=== PATIENT | male | born 1935 | race Caucasian/White ===

== ENCOUNTER 2017-01-17 20:11 | Emergency (ER) | payer OTHER ==
[~2017-01-17] VITALS: Ht 175.3 cm; Wt 93.0 kg
[~2017-01-17 20:11] MED LIST: ALPRAZOLAM 0.50.5 M1 PO; ASPIR 8181 MG PO; ASPIRIN325 PO; ASPIRIN81 M2 PO; ATENOLOL 100MG100 M2 PO; AVODART0.5 MG; AVODART0.5 MG PO; BISACODYL SUPP10 MG RECTAL; CARDIZEM CD 30300 M1 PO; CENTRUM SILVER1 EAC2 PO; CHONDROITIN SU250 MG PO; COLACE100 MG PO; FERREX 150 PLU1 EAC1 PO; FLOMAX0.4 MG PO; GLUCOPHAGE XR500 M1 PO; GLUCOPHAGE500 MG PO; GLUCOSAMINE &1 EAC1 PO; GLUCOSAMINE HC500 MG PO; HYDROCODONE-APA1 TA1 PO; LISINOPRIL40 MG PO; LOMOTIL TABLET1 EACH PO; MAXZIDE-25 MG1 EACH PO; MELOXICAM7.5 MG PO; METFORMIN HCL500 MG PO; METOCLOPRAMIDE10 MG PO; MOBIC15 MG PO; MSM1000 M1 PO; NORCO 5-325 TA1 EACH PO; NORVASC10 MG PO; PAXIL10 MG PO; PRILOSEC20 MG PO; PRILOSEC40 MG PO; SENNA PO; SENOKOT-S1 TA1 PO; SIMVASTATIN20 MG PO; TAZTIA XT360 M1 PO; TIAZAC; TRAMADOL 50 MG50 MG PO; TRIAMTERENE-HC1 EAC1; TRIAMTERENE-HC1 EAC3 PO; TRIAMTERENE/HCT1 CA1 PO; TYLENOL325 MG PO; VITAMIN D1000 UNI1 PO; XANAX1 MG PO; XARELTO10 MG PO; ZOFRAN4 MG PO
== END 2017-01-17 22:36 | disposition home or self-care (01) ==
LOC: ER 20:11
DX: S61.411A Laceration without foreign body of right hand, initial encounter (principal); I10 Essential (primary) hypertension; E11.9 Type 2 diabetes mellitus without complications; K21.9 Gastro-esophageal reflux disease without esophagitis; G47.30 Sleep apnea, unspecified; F41.9 Anxiety disorder, unspecified; Z90.89 Acquired absence of other organs; Z98.890 Other specified postprocedural states; Z90.49 Acquired absence of other specified parts of digestive tract; Z96.653 Presence of artificial knee joint, bilateral; Z85.828 Personal history of other malignant neoplasm of skin; Z91.041 Radiographic dye allergy status; Z88.5 Allergy status to narcotic agent; Z88.0 Allergy status to penicillin; V89.2XXA Person injured in unspecified motor-vehicle accident, traffic, initial encounter; Y93.I9 Activity, other involving external motion; Y92.89 Other specified places as the place of occurrence of the external cause; Y99.8 Other external cause status

== ENCOUNTER 2017-01-21 15:41 | Emergency (ER) | payer OTHER ==
[~2017-01-21] VITALS: Ht 172.7 cm; Wt 104.3 kg
[2017-01-21] MEDS ORDERED: NORCO 5-325 TA1 EACH PO (17:21)
[2017-01-21] MEDS ORDERED: LIDODERM 5%1 PATC1 TRANSDERM (17:23)
[2017-01-21] MEDS ORDERED: KEFLEX500 MG PO (17:55)
== END 2017-01-21 18:05 | disposition left against medical advice (07) ==
LOC: ER 15:41
DX: S22.41XA Multiple fractures of ribs, right side, initial encounter for closed fracture (principal); S80.01XA Contusion of right knee, initial encounter; L03.115 Cellulitis of right lower limb; I10 Essential (primary) hypertension; E11.9 Type 2 diabetes mellitus without complications; K21.9 Gastro-esophageal reflux disease without esophagitis; G47.30 Sleep apnea, unspecified; F41.9 Anxiety disorder, unspecified; Z53.21 Procedure and treatment not carried out due to patient leaving prior to being seen by health care provider; Z90.89 Acquired absence of other organs; Z98.890 Other specified postprocedural states; Z90.49 Acquired absence of other specified parts of digestive tract; Z96.653 Presence of artificial knee joint, bilateral; Z85.828 Personal history of other malignant neoplasm of skin; Z91.041 Radiographic dye allergy status; Z88.5 Allergy status to narcotic agent; Z88.0 Allergy status to penicillin; V89.2XXA Person injured in unspecified motor-vehicle accident, traffic, initial encounter; Y93.I9 Activity, other involving external motion; Y92.89 Other specified places as the place of occurrence of the external cause; Y99.8 Other external cause status

== ENCOUNTER 2017-01-31 15:04 | Emergency (ER) | payer OTHER ==
[~2017-01-31] VITALS: Ht 175.3 cm; Wt 104.3 kg
--- NOTE | ~2017-01-31 | EKG ---
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 luis : 1935 Requested By: Kalpana Ken Order Number: [id number] MD: Eleno Merida Measurements Intervals [place] Rate: 53 P: 105 DC: 316 QRS: -3 QRSD: 142 T: 0 QT: 473 QTc: 445 Interpretive Statements Sinus rhythm Right bundle branch block Left ventricular hypertrophy Baseline wander in lead(s) V1 Compared to ECG 11/03/2015 10:35:33 Atrial premature complexes no longer present Electronically Signed On 02-01-2017 15:57:42 CDT by Eleno Merida [email or web address] <ELECTRONICALLY SIGNED> By: Eleno Merida MD, [facility] 02/01/17 1557 1626 1626 Eleno Merida MD, [facility] /EPI
[~2017-01-31 15:04] MED LIST changes: +KEFLEX500 MG PO; +LIDODERM 5%1 PATC1 TRANSDERM
[2017-01-31 16:51] LABS: ABSOLUTE NEUTROPHILS 3.4 thou/uL (1.4-8.2); BASOPHILS 0.7 % (0.0-2.0); EOSINOPHILS 4.4 % (0.0-3.0); HEMATOCRIT 32.8 % (42.0-52.0); HEMOGLOBIN 10.6 gm/dL (14.0-18.0); LYMPHOCYTES 22.4 % (24.0-44.0); MCH 25.1 pg (26.0-34.0); MCHC 32.3 g/dL (28.0-37.0); MCV 77.6 fL (80.0-100.0); MONOCYTES 7.4 % (1.0-8.0); PLATELET COUNT 166 thou/uL (150-400); POLYS 65.1 % (36.0-66.0); RBC 4.23 mil/uL (4.50-6.00); RDW 16.3 % (10.5-14.5); WBC 5.2 thou/uL (4.0-11.0)
[2017-01-31 17:00] LABS: ANION GAP 10 mmol/L (7-16); BUN 20 mg/dL (7-18); CALCIUM 8.6 mg/dL (8.5-10.1); CHLORIDE 104 mmol/L (98-107); CO2 27 mmol/L (21-32); CREATININE 0.7 mg/dL (0.7-1.3); GLUCOSE 89 mg/dL (74-106); POTASSIUM 3.7 mmol/L (3.5-5.1); SODIUM 141 mmol/L (136-145)
[2017-01-31 17:10] LABS: MANUAL DIFF NO
[2017-01-31 17:13] LABS: NT-PRO BRAIN NAT PEPTIDE 669 pg/mL (<300); TROPONIN-I < 0.04 ng/mL (<0.04-0.07)
== END 2017-01-31 19:34 | disposition home or self-care (01) ==
LOC: ER 15:04
PROVIDERS: Emergency Medicine
DX: S22.41XA Multiple fractures of ribs, right side, initial encounter for closed fracture (principal); S22.22XA Fracture of body of sternum, initial encounter for closed fracture; I10 Essential (primary) hypertension; E11.9 Type 2 diabetes mellitus without complications; F41.9 Anxiety disorder, unspecified; K21.9 Gastro-esophageal reflux disease without esophagitis; Z98.42 Cataract extraction status, left eye; Z98.41 Cataract extraction status, right eye; Z96.653 Presence of artificial knee joint, bilateral; Z88.5 Allergy status to narcotic agent; Z88.0 Allergy status to penicillin; Z88.8 Allergy status to other drugs, medicaments and biological substances; Z91.041 Radiographic dye allergy status

== ENCOUNTER 2017-12-02 17:14 | Emergency (ER) | payer OTHER ==
[~2017-12-02] VITALS: Ht 175.3 cm; Wt 104.3 kg
--- NOTE | ~2017-12-02 | EKG ---
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: THERON : 1935 Requested By: Bobo Jha Order Number: [id number] MD: Eleno Merida Measurements Intervals [place] Rate: 74 P: 15 WV: 185 QRS: -25 QRSD: 143 T: 2 QT: 420 QTc: 466 Interpretive Statements Sinus rhythm Right bundle branch block Left ventricular hypertrophy Compared to ECG 01/31/2017 16:26:34 No significant changes Electronically Signed On 12-03-2017 8:31:46 CDT by Eleno Merida [email or web address] <ELECTRONICALLY SIGNED> By: Eleno Merida MD, [facility] 12/03/17 0831 1721 20 Eleno Merida MD, [facility] /EPI
[2017-12-02 17:45] LABS: HEMATOCRIT 31.1 % (42.0-52.0); HEMOGLOBIN 9.5 gm/dL (14.0-18.0); MCH 19.8 pg (26.0-34.0); MCHC 30.5 g/dL (28.0-37.0); MCV 64.9 fL (80.0-100.0); PLATELET COUNT 159 thou/uL (150-400); RBC 4.79 mil/uL (4.50-6.00); WBC 7.1 thou/uL (4.0-11.0)
[2017-12-02 17:53] LABS: CALCIUM 9.5 mg/dL (8.5-10.1); CREATININE 1.1 mg/dL (0.7-1.3)
[2017-12-02 18:28] LABS: ABSOLUTE NEUTROPHILS 5.3 thou/uL (1.4-8.2); HYPOCHROMASIA 1+; MICROCYTES 2+
[2017-12-02 18:29] LABS: ANISOCYTOSIS 1+; OVALOCYTES FEW; POIKILOCYTOSIS 1+
== END 2017-12-02 18:45 | disposition home or self-care (01) ==
LOC: ER 17:14
PROVIDERS: Emergency Medicine
DX: R55 Syncope and collapse (principal); K59.00 Constipation, unspecified; I10 Essential (primary) hypertension; E11.9 Type 2 diabetes mellitus without complications; K21.9 Gastro-esophageal reflux disease without esophagitis; Z85.828 Personal history of other malignant neoplasm of skin; Z88.0 Allergy status to penicillin; Z88.5 Allergy status to narcotic agent; Z88.8 Allergy status to other drugs, medicaments and biological substances

== ENCOUNTER 2018-12-17 00:38 | Emergency (ER) | payer OTHER ==
[~2018-12-17] VITALS: Ht 172.7 cm; Wt 99.8 kg
[2018-12-17 01:56] LABS: HEMATOCRIT 28.3 % (42.0-52.0); HEMOGLOBIN 9.1 gm/dL (14.0-18.0); MCH 25.2 pg (26.0-34.0); MCHC 32.1 g/dL (28.0-37.0); MCV 78.7 fL (80.0-100.0); RBC 3.59 mil/uL (4.50-6.00); RDW 16.3 % (10.5-14.5); WBC 4.8 thou/uL (4.0-11.0)
[2018-12-17 02:04] LABS: ANION GAP 9 mmol/L (7-16); BUN 26 mg/dL (7-18); CALCIUM 8.7 mg/dL (8.5-10.1); CHLORIDE 101 mmol/L (98-107); CO2 27 mmol/L (21-32); CREATININE 0.9 mg/dL (0.7-1.3); GLUCOSE 90 mg/dL (74-106); POTASSIUM 3.5 mmol/L (3.5-5.1); SODIUM 137 mmol/L (136-145)
[2018-12-17 02:08] LABS: TROPONIN-I <0.06 ng/mL (<0.06)
[2018-12-17 03:35] VITALS: BP 114/68
--- NOTE | 2018-12-17 08:21 | EKG ---
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 Right bundle branch block Left ventricular hypertrophy Lateral infarct, age indeterminate Compared to ECG 12/02/2017 17:21:06 Electronically Signed On 12-17-2018 8:21:47 CDT by Suleiman Villagran [email or web address] ��������������������������������������������� <ELECTRONICALLY SIGNED> ���������������������������������������� By: Suleiman Villagran MD ��������������������������������������������� 12/17/18 08 005 Suleiman Villagran MD /ARY
== END 2018-12-17 03:35 | disposition home or self-care (01) ==
LOC: ER 00:38
PROVIDERS: Emergency Medicine
DX: M25.512 Pain in left shoulder (principal); M54.2 Cervicalgia; I10 Essential (primary) hypertension; E11.9 Type 2 diabetes mellitus without complications; K21.9 Gastro-esophageal reflux disease without esophagitis; F41.9 Anxiety disorder, unspecified; G47.30 Sleep apnea, unspecified; Z95.5 Presence of coronary angioplasty implant and graft; Z88.5 Allergy status to narcotic agent; Z91.041 Radiographic dye allergy status; Z90.49 Acquired absence of other specified parts of digestive tract; Z96.653 Presence of artificial knee joint, bilateral; Z85.828 Personal history of other malignant neoplasm of skin

== ENCOUNTER 2019-06-22 07:50 | Inpatient (IN) | payer OTHER ==
[~2019-06-22] VITALS: Ht 172.7 cm; Wt 97.5 kg
--- NOTE | ~2019-06-22 | HC ---
[facility] [place] [address] CONSULTATION Name: FERDINAND WALSH Room #: 355-P [facility] IN .R.#: [id number] Admission: 06/22/19 Attend Phys: Marcela Bonilla MD Discharge: Date of : 36 Report #: [id number] THIS REPORT FOR: //name// CC: FAM unknown Marcela Bonilla DATE OF SERVICE: 06/23/2019 WOUND CARE CONSULTATION REQUESTING PHYSICIAN: Dr. Bonilla. CHIEF COMPLAINT: Decubitus ulcers. HISTORY OF PRESENT ILLNESS: This is an 84-year-old white male who is pleasantly confused, who was admitted last evening for altered mental status and generalized debility. The patient was noted upon admission to have decubitus ulcers on his bilateral superior gluteal region as well as his coccygeal region. According to records and talking to the patient, he spends most of his time sitting in a recliner and over the past several days it appears he might possibly have not gotten out of his recliner. The patient himself keeps asking "why am I here?" The patient is unable to give me any other history. The patient denies any significant pain associated with decubitus ulcers. The patient states he has never had any other ulcers that he could recall in the past. PAST MEDICAL HISTORY: Significant for hypertension, diabetes, anxiety, atrial fibrillation, chronic back pain, generalized debility. CURRENT MEDICATIONS: Multiple, I reviewed the patient's medication list. DRUG ALLERGIES: Include OXYCODONE, IV CONTRAST. SOCIAL HISTORY: The patient supposedly resides at home with his son who has cerebral palsy. No history of smoking or alcohol use. FAMILY HISTORY: Not pertinent to current medical condition. REVIEW OF SYSTEMS: Unobtainable because of the patient's confused state. PHYSICAL EXAMINATION: VITAL SIGNS: Temperature 37.3, pulse 80, respirations 20, BP 126/69. GENERAL: This is an alert and oriented x [address] or time, elderly white male who appears somewhat unkempt. HEENT: Normocephalic, atraumatic. Mucous membranes are dry. Pupils are round. Sclerae are white. [facility] [address] [place] [address] CONSULTATION Name: FERDINAND WALSH Room #: 355-P [facility] IN M.R.#: [id number] Admission: 06/22/19 Attend Phys: Marcela Bonilla MD Discharge: Date of : 36 Report #: [id number] NECK: Supple and nontender, without JVD. LUNGS: Clear. HEART: Regular. ABDOMEN: Soft, nontender. EXTREMITIES: The patient moves all extremities without difficulty. Bilateral heels are intact. Evaluation of gluteal region reveals stage 3 decubitus ulcers, which are a mix of approximately 90% granulation tissue, 10% yellow slough with a moderate amount of serosanguineous drainage noted without significant odor. Periwound is mildly macerated. There is no tunneling or undermining. Evaluation of the coccyx reveals a stage 3 decubitus ulcer, which is clean, granulating, without signs of infection. Minimal amount of serosanguineous drainage noted without odor. No tunneling or undermining. Periwound is mildly macerated. NEUROLOGIC: Cranial nerves 2-12 are grossly intact. Motor and sensory grossly intact. LABORATORY DATA: White count 5.9, hemoglobin 7.6, potassium 3.1, BUN 30, creatinine 1.1. IMPRESSION: 1. Bilateral superior gluteal stage 3 decubitus ulcers present on admission. 2. Stage 3 coccygeal decubitus ulcer present on admission. 3. Generalized debility. 4. Diabetes mellitus. 5. Altered mental status. PLAN: We will start barrier cream to the ulcers covered with a foam daily. I will put him on a low air loss mattress and be turned every 2 hours. We will try to maximize the patient's oral protein supplementation for continued healing. We will consult Physical and Occupational Therapy for strengthening and continue all of his other current medications. We will continue to follow the patient. I appreciate the ability to consult. By: 1031 [id number] Pepito Wu MD /marc
[2019-06-22 07:51] VITALS: BP 93/57
--- NOTE | 2019-06-22 08:10 | EKG ---
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 Right bundle branch block Compared to ECG 12/17/2018 00:50:29 Electronically Signed On 06-22-2019 8:10:34 CDT by Suleiman Villagran [email or web address] <ELECTRONICALLY SIGNED> By: Suleiman Villagran MD 06/22/19 0810 3 0804 Suleiman Villagran MD /ARY
[2019-06-22 08:15] LABS: BASOPHILS 0.5 % (0.0-2.0); EOSINOPHILS 0.1 % (0.0-3.0); HEMATOCRIT 28.1 % (42.0-52.0); HEMOGLOBIN 8.9 gm/dL (14.0-18.0); LYMPHOCYTES 8.1 % (24.0-44.0); MCHC 31.7 g/dL (28.0-37.0); MCV 75.8 fL (80.0-100.0); MONOCYTES 10.5 % (1.0-8.0); PLATELET COUNT 169 thou/uL (150-400); POLYS 80.8 % (36.0-66.0); RBC 3.71 mil/uL (4.50-6.00); RDW 20.8 % (10.5-14.5); WBC 8.7 thou/uL (4.0-11.0)
[2019-06-22 08:23] LABS: ANION GAP 10 mmol/L (7-16); BUN 50 mg/dL (7-18); CALCIUM 9.9 mg/dL (8.5-10.1); CHLORIDE 97 mmol/L (98-107); CO2 31 mmol/L (21-32); CREATININE 2.4 mg/dL (0.7-1.3); GLUCOSE 117 mg/dL (74-106); POTASSIUM 3.7 mmol/L (3.5-5.1); SODIUM 138 mmol/L (136-145)
[2019-06-22 08:32] LABS: MAGNESIUM 1.4 mg/dL (1.8-2.4); TROPONIN-I <0.06 ng/mL (<0.06)
[2019-06-22 08:37] LABS: URINE BILIRUBIN NEGATIVE (Negative); URINE BLOOD 1+ (Negative); URINE CLARITY CLOUDY; URINE COLOR YELLOW; URINE GLUCOSE-RANDOM* NEGATIVE (Negative); URINE KETONES NEGATIVE (Negative); URINE NITRITE-REFLEX NEGATIVE (Negative); URINE PROTEIN (DIPSTICK) 1+ (Negative); URINE UROBILINOGEN 0.2 E.U./dl (0.2-1.0)
[2019-06-22 08:49] LABS: URINE LEUKOCYTES-REFLEX 3+ (Negative)
[2019-06-22 08:55] LABS: ANISOCYTOSIS 2+; OVALOCYTES 1+
[2019-06-22 09:04] LABS: BACTERIA-REFLEX >30 Many /HPF (None Seen); CASTS None Seen /LPF (None Seen); CRYSTALS None Seen /LPF (None Seen); SQUAMOUS None Seen /LPF (0-3); URINE RBC None Seen /HPF (0-2); URINE WBC-REFLEX >25 Many /HPF (0-5)
[2019-06-22] MEDS ORDERED: LASIX 40 MG TAB40 MG PO (14:43)
[2019-06-22] MEDS ORDERED: JANUMET 50-1,01 EACH PO (14:45)
[2019-06-22] MEDS ORDERED: MYRBETRIQ25 MG PO (14:45)
[2019-06-22] MEDS ORDERED: HYDROCHLOROTH12.5 M1 PO (14:46)
[2019-06-22] MEDS ORDERED: METFORMIN HCL500 M3 PO (14:46)
[2019-06-22 15:04] VITALS: BP 120/62
[2019-06-22] MEDS ORDERED: ATENOLOL 100MG100 MG PO (16:07)
[2019-06-22] MEDS ORDERED: HYDROCODON-ACE1 EAC8 PO (16:08)
[2019-06-22] MEDS ORDERED: CARBIDOPA-LEVO1 EAC5 PO (16:10)
[2019-06-22] MEDS ORDERED: BENZTROPINE ME0.5 MG PO (16:11)
[2019-06-22] MEDS ORDERED: MYSOLINE50 MG PO ×2 (16:13→16:15)
[2019-06-22] MEDS ORDERED: TRIHEXYPHENIDYL2 M1 (16:19)
[2019-06-22] MEDS ORDERED: TRAMADOL 50 MG50 MG PO (16:22)
[2019-06-22] MEDS ORDERED: CHLORTHALIDONE25 MG PO (16:24)
[2019-06-22] MEDS ORDERED: NEURONTIN100 MG PO (16:25)
[2019-06-22] MEDS ORDERED: COMTAN200 MG PO (16:29)
[2019-06-22 19:48] VITALS: BP 109/63
--- NOTE | 2019-06-22 20:35 | NUR ---
Patient arrived to around 1600 and was then oriented to the unit. Admission documetation was completed; appropriate documents were signed; Assessments documented.
[2019-06-22 21:56] LABS: HEMATOCRIT 25.3 % (42.0-52.0); HEMOGLOBIN 8.1 gm/dL (14.0-18.0)
[2019-06-22 23:24] VITALS: BP 120/58
[2019-06-23 04:00] VITALS: BP 111/62
[2019-06-23 05:20] LABS: HEMATOCRIT 24.6 % (42.0-52.0); HEMOGLOBIN 7.6 gm/dL (14.0-18.0); MCH 23.9 pg (26.0-34.0); MCV 77.2 fL (80.0-100.0); RBC 3.18 mil/uL (4.50-6.00); RDW 20.8 % (10.5-14.5); WBC 5.9 thou/uL (4.0-11.0)
[2019-06-23 05:33] LABS: CALCIUM 8.1 mg/dL (8.5-10.1); PHOSPHORUS 2.9 mg/dL (2.5-4.9); POTASSIUM 3.1 mmol/L (3.5-5.1)
[2019-06-23 06:12] LABS: CREATININE 1.1 mg/dL (0.7-1.3)
[2019-06-23 07:30] VITALS: BP 126/69
[2019-06-23 09:45] LABS: HEMATOCRIT 25.4 % (42.0-52.0); HEMOGLOBIN 7.9 gm/dL (14.0-18.0)
--- NOTE | 2019-06-23 14:30 | NUR ---
ASSESSMENT: CM REVIEWED CHART AND MET WITH PATIENT AT THE BEDSIDE. PT WAS ADMITTED WITH LINDA/AFIB AND CALLED EMS WHEN HAVING TROUBLE GETTING UP. PT REPORTS HE LIVES IN A HOME WITH HIS SON. PER REPORT PTS SON HAS CEREBRAL PALSY. CM ASKED PT IF SON IS ABLE TO CARE FOR HIMSELF AND PT STATED YES OF COURSE. PT REPORTS THAT HE HAS TWO STEPS TO GET INTO THE HOME AND NO STEPS ONCE INSIDE. PT REPORTS THAT HE USES A WALKER FOR AMBULATION. PT REPORTS HE HAS A SHOWER CHAIR HE USES. PT REPORTED HE HAD [facility] IN THE PAST AND CM ASKED IF THEY STILL COME PT STATED YES. CM REACHED OUT TO [facility] HOWEVER AND THEY STATE PATIENT IS NOT ON SERVICES WITH HIM. PT REPORTS HE HAS ALSO BEEN TO A SNF IN THE PAST BUT UNSURE THE NAME AND DID NOT LIKE BEING THERE. PT REPORTS HIS SON LIVES WITH HIM AND HE HAS A FRIEND FAISAL THAT HELPS WITH MEALS BUT HE STATES BOTH OF THEM JUST WANT HIS MONEY. 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 CM ASKED IF PT HAD A NUMBER FOR LUCERO, HE STATED [phone] HE THOUGHT. CM ATTEMPTED TO CALL THIS NUMBER BUT UNABLE TO REACH ANYONE. CM ALSO ATTEMPTED TO REACH PATIENTS SON MULTIPLE TIMES BUT UNABLE TO REACH. PT/OT ORDERED FOR PATIENT BUT HE IS NOT ALWAYS COMPLIANT. PT STATING I AM GOING HOME FROM THE HOSPITAL. CM WILL CONTNUE TO FOLLOW TO ASSIST NEEDED.
[2019-06-23 15:39] VITALS: BP 106/67
--- NOTE | 2019-06-23 19:33 | NUR ---
Assumed care approx. 0700 this AM. Patient SR on the monitor. A couple of hard, formed bowel movements today. Patient started on GoLytley this evening to help soften BM's-about 1/4 drank by end of shift. Patterson still intact for accurate I&O's with new LINDA. Patient turned Q2H with wedge. Zguard in patient's room for further use with daily dressing changes. Low airloss pump connected to bed. Maintenance fluids infusing per orders. Patient slowly progressing toward plan of care goals.
[2019-06-23 20:20] VITALS: BP 147/61
[2019-06-24 02:10] VITALS: BP 147/61
[2019-06-24 02:33] LABS: HEMOGLOBIN 7.3 gm/dL (14.0-18.0); MCH 23.4 pg (26.0-34.0); MCHC 30.7 g/dL (28.0-37.0); MCV 76.2 fL (80.0-100.0); RBC 3.14 mil/uL (4.50-6.00); RDW 20.7 % (10.5-14.5); WBC 4.2 thou/uL (4.0-11.0)
[2019-06-24 02:44] LABS: ALBUMIN 2.1 g/dL (3.4-5.0); CALCIUM 8.1 mg/dL (8.5-10.1); CREATININE 0.9 mg/dL (0.7-1.3); MAGNESIUM 1.7 mg/dL (1.8-2.4); POTASSIUM 3.6 mmol/L (3.5-5.1); TOTAL BILIRUBIN 0.2 mg/dL (<0.1-1.0); TOTAL PROTEIN 5.9 g/dL (6.4-8.2)
[2019-06-24 04:25] VITALS: BP 126/72
--- NOTE | 2019-06-24 05:12 | NUR ---
PT A/0 X2 AND VERY FORGETFUL. PT TRYING TO GET INDIVIDUAL TO DRINK MORE HEATHER IS NOT HAPPENING, HE IS REFUSING. PT HAD LARGE BM REASON NOT TO DRINK ANYMORE HE STATES. PT STATES HE DID NOT RECEIVE EVENING DOSES OF HIS MEDICATION. REDIRECTION AND EXPLAINING TO PT THE TIMES, HE STILL STATES HE DID NOT TAKE THEM. PT FREQUENTLY CALLING HOSPITAL CASUALTY CLAIM ADJUSTER, 911, AND PHARMACY. REDIRECTING AGAIN. PT STATES, "I NEED TO TALK TO MY SON, HE IS HANDICAP." MULTIPLE NURSES TRIED TO REDIRECT. PT ON LOW LOSS AIR MATTRESS. GAVE PT PO PAIN MEDICATION AND RESTARTED HOME DOSE OF XANAX AND PT IS RESTING COMFORTABLY NOW. OSMAN IN PLACE. HOURLY ROUNDING.
[2019-06-24 07:22] VITALS: BP 126/58
[2019-06-24 08:00] VITALS: BP 124/73
--- NOTE | 2019-06-24 13:31 | NUR ---
on-going assessment: CM REVIEWED CHART AND SPOKE WITH ATTENDING. CM MET WITH PATIENT AT THE BEDSIDE. PT DID WORK WITH PT/OT TODAY AND THEY ARE RECOMMENDING SNF. PT STATING HE WAS RECENTLY AT A SNF BUT CANNOT REMEMBER WHERE AND IS UNSURE IF HE IS IN COPAY DAYS BUT IF SO CANNOT PAY THAT. CM HAS ATTEMPTED TO REACH PATIENTS SON MULTIPLE TIMES BUT NUMBER LISTED IS NOT WORKING AT THIS TIME (CELL AND HOME PHONE CM IS UNABLE TO REACH SON). CM REACHED OUT TO INSURANCE TO SEE IF WE COULD GET THE NAME OF SNF PATIENT WAS AT. CM SPOKE WITH [facility] WHO REPORTS PT WAS RECENTLY AT [facility] CM ATTEMPTED TO REACH [facility] TO SEE IF THEY HAVE AN ALT CONTACT FOR PATIENTS SON. PT STATES HE IS AGREEABLE TO GO TO SNF IF HE DOES NOT HAVE A COPAY AND WOULD LIKE TO GO BACK TO [facility]. CM FAXED REFERRAL TO [facility] FOR THEM TO REVIEW AND ASKED THEM TO START SEEKING AUTH IF THEY CAN ACCEPT PATIENT. CM WAITING TO HEAR BACK FROM SNF AT THIS TIME (WEEKEND DISCHARGE UNLIKELY WE WILL NEED INSURANCE AUTH AND ACCEPTANCE FIRST).
[2019-06-24 15:00] VITALS: BP 124/73
--- NOTE | 2019-06-24 18:10 | NUR ---
PT UP TO CHAIR TODAY. SEEN BY WOUND CARE, PT AND OT.
[2019-06-24 20:20] VITALS: BP 113/71
[2019-06-25 04:30] VITALS: BP 116/76
[2019-06-25 04:30] LABS: HEMATOCRIT 24.1 % (42.0-52.0); HEMOGLOBIN 7.5 gm/dL (14.0-18.0); MCH 23.7 pg (26.0-34.0); MCV 76.4 fL (80.0-100.0); RBC 3.16 mil/uL (4.50-6.00); RDW 20.4 % (10.5-14.5); WBC 4.2 thou/uL (4.0-11.0)
[2019-06-25 04:47] LABS: ALBUMIN 2.2 g/dL (3.4-5.0); CALCIUM 8.1 mg/dL (8.5-10.1); CREATININE 0.7 mg/dL (0.7-1.3); MAGNESIUM 1.4 mg/dL (1.8-2.4); PHOSPHORUS 2.4 mg/dL (2.5-4.9); POTASSIUM 3.5 mmol/L (3.5-5.1)
[2019-06-25 07:40] VITALS: BP 129/73
--- NOTE | 2019-06-25 07:44 | NUR ---
PATIENT IS CONFUSED. PATIENT IS Q2 TURN. PATIENT IS ROOMAIR. PATIENT IS CHRONIC A FIB. PATIENTS LBM WAS THE 31ST. MARGIE HAS A OSMAN. PATIENTS PAIN IS CONTROLLED WITH MEDICATION. PATIENT IS ACHS ACCUCHECKS. PAITENT IS PENDING PLACEMENT. CM NEEDS TO SPEAK WITH DPOA. PATIENT IS PROGRESSING TO GOALS.
[2019-06-25 16:24] VITALS: BP 101/59
--- NOTE | 2019-06-25 17:28 | NUR ---
ASSUMED CARE OF PATIENT AT 0700. PATIENT DROWSY AND SLEPT TILL AROUND 1500. APRAZOLAM HELD AND PATIENT MORE ALERT AND AWAKE NOW. PATIENT HAS BOUTS OF CONFUSION. VSS. ROOM AIR. AFIB ON MONITOR. CONTINUING TO MONITOR.
[2019-06-25 19:46] VITALS: BP 126/65
--- NOTE | 2019-06-26 04:55 | NUR ---
PATIENT IS CONFUSED. PATIENT CAN BE ANXIOUS AT TIMES. PATEINT HAS A COCCYX WOUND AND IS Q 2TURN. PATIENT IS A FIB ON TELE. PATIENTS PAIN IS CONTROLLED WITH PAIN MEDICATION. PATIENT HAS A POOR APPITITE BLOOD GLUCOSE WAS LOW AT START OF SHIFT BUT WAS RECOVERED WITH ORAL INTAKE. PATIENT HAS A OSMAN. PATIENT IS PENDING PLACEMENT. PATIENT CM IS WORKING TO CONTACT OA. PATIENT IS WORRIED ABOUT SON AT HOME. PATIENT IS RESTING IN BED. WCM. PATIENT IS NOT PROGRESSING TO GOALS.
--- NOTE | 2019-06-26 05:33 | NUR ---
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
[2019-06-26 05:37] VITALS: BP 127/88
[2019-06-26 08:15] VITALS: BP 124/63
[2019-06-26 16:17] VITALS: BP 92/60
--- NOTE | 2019-06-26 18:27 | NUR ---
PATIENT ALERT AND ORIENTED TO SELF AND SITUATION, FORGETFUL AT TIMES. INTERMITTENT A-FIB ON HISTORIOGRAPHY PROFESSOR. ON ROOM AIR. PATIENT VERY WEAK, UNABLE TO SHIFT SELF IN BED. BLOOD SUGAR MONITORED. PATIENT VISITED WITH SON TODAY. NO SIGNS OF ACUTE DISTRESS NOTED AT THIS TIME. WILL CONTINUE TO MONITOR.
[2019-06-26 19:50] VITALS: BP 128/68
[2019-06-27 05:06] VITALS: BP 136/61
[2019-06-27 05:36] LABS: HEMOGLOBIN 6.8 gm/dL (14.0-18.0); RDW 20.6 % (10.5-14.5); WBC 4.4 thou/uL (4.0-11.0)
[2019-06-27 05:39] LABS: HEMATOCRIT 21.6 % (42.0-52.0); MCH 23.8 pg (26.0-34.0); MCHC 31.5 g/dL (28.0-37.0); MCV 75.7 fL (80.0-100.0); RBC 2.86 mil/uL (4.50-6.00)
[2019-06-27 06:02] LABS: CALCIUM 8.4 mg/dL (8.5-10.1); CREATININE 0.7 mg/dL (0.7-1.3); MAGNESIUM 1.6 mg/dL (1.8-2.4); POTASSIUM 3.7 mmol/L (3.5-5.1)
[2019-06-27 07:05] LABS: % SATURATION 5 % (20-39); IRON 12 ug/dL (65-175); TIBC 237 ug/dL (250-450)
[2019-06-27 08:22] VITALS: BP 135/65
[2019-06-27 09:11] VITALS: BP 140/76; BP 89/75
--- NOTE | 2019-06-27 14:06 | NUR ---
on-going assessment: CM REVIEWED CHART AND MET WITH PATIENT AT THE BEDSIDE WELL WITH HIS FAMILY FRIEND FAISAL ([phone]). HERON FROM [facility] ALSO CAME TO SEE PATIENT BUT PATIENT IS IN COPAY DAYS FOR SNF AND WOULD [id number]/DAY. PT STATES THERE IS NO WAY HE CAN AFFORD THAT. CM DISCUSSED OTHER OPTION WOULD BE TO RETURN HOME WITH HOME HEALTH. CM FOUND OUT THROUGH FAISAL THAT PATIENT CURRENTLY HAS [facility]. CM UPDATED NOTIFIED POULTRY HATCHERY MANAGER TO PLEASE ASSIST IN NOTIFYING [facility] AND SENDING REFERRAL. CM ALSO SENT FACESHEET TO [employer] TO SEE IF PATIENT WILL QUALIFY FOR MEDICAID THEN TO SEE IF THAT WAY HE WOULD BE ABLE TO POSSIBLY GET IN HOME SERVICES. CM ALSO DISCUSSED PRIVATE DUTY IN ADDITION TO HH WITH PATIENT. CM WILL CONTINUE TO FOLLOW TO ASSIST NEEDED.
--- NOTE | 2019-06-27 14:49 | NUR ---
DISCHARGE PLANNING. PATIENT ADMITTED FROM HOME. ON SERVICE WITH [facility]. PLAN IS FOR PATIENT TO DISCHARGE TO HOME WITH RESUMPTION OF [facility]. REFERRAL FAXED TO [facility]. CALL PLACED TO SAM TO NOTIFY. FOLLOWIING.
[2019-06-27 16:56] VITALS: BP 145/100
--- NOTE | 2019-06-27 19:33 | NUR ---
ASSUMED CARE OF PATIENT AT 0700. VSS. ALERT AND ORIENTED X 3. CONFUSION AT TIMES. AGITATED SOMETIMES. RECIEVED 1 UNIT OF BLOOD IN TRANSFUSION TODAY WITH NO REACTION BESIDES MOMENTARY DROP IN BLOOD PRESSURE THAT RESOLVED ITSELF. CONTINUING TO MONITOR.
[2019-06-27 20:19] VITALS: BP 141/78
[2019-06-28 04:14] VITALS: BP 139/89
--- NOTE | 2019-06-28 04:24 | NUR ---
PT HAD RESTFUL NIGHT. REQUIRED ONE DOSE OF XANAX DURING SHIFT. OTHERWISE NOTHING CHANGED FROM ASSESSMENT
[2019-06-28 05:32] LABS: HEMATOCRIT 24.5 % (42.0-52.0); HEMOGLOBIN 7.8 gm/dL (14.0-18.0); MCH 24.3 pg (26.0-34.0); MCHC 31.8 g/dL (28.0-37.0); MCV 76.2 fL (80.0-100.0); RBC 3.22 mil/uL (4.50-6.00); RDW 20.7 % (10.5-14.5); WBC 5.2 thou/uL (4.0-11.0)
[2019-06-28 05:44] LABS: CALCIUM 8.7 mg/dL (8.5-10.1); CREATININE 0.7 mg/dL (0.7-1.3); MAGNESIUM 1.6 mg/dL (1.8-2.4); POTASSIUM 3.5 mmol/L (3.5-5.1)
[2019-06-28 07:23] VITALS: BP 119/65
[2019-06-28] MEDS ORDERED: CEFUROXIME500 MG PO (12:36)
[2019-06-28] MEDS ORDERED: MAGNESIUM400 MG PO (12:36)
[2019-06-28] MEDS ORDERED: PEPCID20 MG PO (12:36)
[2019-06-28] MEDS ORDERED: KLOR-CON 1010 MEQ PO (12:36)
[2019-06-28 12:52] VITALS: BP 119/65
--- NOTE | 2019-06-28 12:56 | NUR ---
ON-GOING ASSESSMENT: CM REVIEWED CHART AND SPOKE WITH ATTENDING. SINCE PT CANNOT AFFORD THE 167.50/DAY COPAY FOR SNF PT WILL RETURN HOME WITH HH ([facility] WHO HE WAS IN SERVICES WITH PRIOR TO ADMISSION). KANDY ALSO SPOKE WITH LIASON FROM [employer] WHO TOUCHED BASE WITH PATIENTS FAMILY FRIEND FAISAL AND IS WORKING TO SEE IF PATIENT WILL QUALIFY FOR MEDICAID AND WILL CONTINUE TO FOLLOW. CM NOTIFIED [facility] OF DISCHARGE TODAY AND FAXED D/C ORDERS. CM SPOKE WITH FAISAL TO NOTIFY HIM OF DISCHARGE AND HE IS GOING TO CLINICAL INFORMATICS MANAGER PT AFTER HE GETS OFF OF WORK AND WILL TAKE PT HOME. PT REPORTS NO FURTHER QUESTIONS FOR KANDY AT THIS TIME. CONTACT FOR FAISAL IF NEEDED IS [phone].
[2019-06-28 14:02] VITALS: BP 119/65
--- NOTE | 2019-06-28 15:46 | NUR ---
Pt more drowsy than usual in the morning, credits xanax dose the night before. Reports stomach pains and difficulty passing BM. fleets enema given. anxious to return home. Bed bath given with OT. Hand tremors soft but persistent.
[2019-06-28 16:20] VITALS: BP 156/81
--- NOTE | 2019-06-28 18:39 | NUR ---
ASSUMED CARE OF PATIENT AT 0700. VSS. RA. ALERT AND ORIENTED X 3-4. LARGE BOWEL MOVMENT TODAY. PATIENT RECIEVED DISCHARGE ORDERS AND IS AWAITING MAIL TECHNICIAN TO PICK HIM UP. IV, TELEMETRY, AND OSMAN REMOVED. AWAITNG DISCHARGE
[2019-06-28 20:23] VITALS: BP 144/84
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
== END 2019-06-28 21:15 | disposition home health service (06) | DRG 871 ==
LOC: ER 07:50 → EROBS 09:12 → 3W 09:12 → TBA 09:34 → 3W 14:51
PROVIDERS: Emergency Medicine; Hospitalist; Internal Medicine; Nurse Practitioner Acute Care; ADMIT Internal Medicine
PROC: 30233N1 Transfusion of Nonautologous Red Blood Cells into Peripheral Vein, Percutaneous Approach (ICD-10-PCS; principal; 2019-06-27)
DX: A41.9 Sepsis, unspecified organism (principal); L89.153 Pressure ulcer of sacral region, stage 3; L89.323 Pressure ulcer of left buttock, stage 3; L89.313 Pressure ulcer of right buttock, stage 3; E43 Unspecified severe protein-calorie malnutrition; G92 Toxic encephalopathy; N39.0 Urinary tract infection, site not specified; N17.9 Acute kidney failure, unspecified; E86.0 Dehydration; N40.0 Benign prostatic hyperplasia without lower urinary tract symptoms; I95.9 Hypotension, unspecified; G20 Parkinson's disease; F41.9 Anxiety disorder, unspecified; K21.9 Gastro-esophageal reflux disease without esophagitis; I10 Essential (primary) hypertension; Z96.653 Presence of artificial knee joint, bilateral; I48.91 Unspecified atrial fibrillation; E83.42 Hypomagnesemia; G80.9 Cerebral palsy, unspecified; E87.6 Hypokalemia; N28.89 Other specified disorders of kidney and ureter; G89.29 Other chronic pain; M54.9 Dorsalgia, unspecified; E11.36 Type 2 diabetes mellitus with diabetic cataract; G47.33 Obstructive sleep apnea (adult) (pediatric); K59.00 Constipation, unspecified; N28.1 Cyst of kidney, acquired; B96.20 Unspecified Escherichia coli [E. coli] as the cause of diseases classified elsewhere; D50.9 Iron deficiency anemia, unspecified; Z66 Do not resuscitate; Z85.828 Personal history of other malignant neoplasm of skin; Z98.42 Cataract extraction status, left eye; Z98.41 Cataract extraction status, right eye; Z90.49 Acquired absence of other specified parts of digestive tract; Z79.899 Other long term (current) drug therapy; Z79.84 Long term (current) use of oral hypoglycemic drugs; Z79.82 Long term (current) use of aspirin; Z88.8 Allergy status to other drugs, medicaments and biological substances; Z91.041 Radiographic dye allergy status; Z82.49 Family history of ischemic heart disease and other diseases of the circulatory system; Z83.3 Family history of diabetes mellitus; Z68.32 Body mass index [BMI] 32.0-32.9, adult
CPT/HCPCS: 10879

== ENCOUNTER 2019-09-22 18:13 | Emergency (ER) | payer OTHER ==
[~2019-09-22] VITALS: Ht 172.7 cm; Wt 93.4 kg
[~2019-09-22 18:13] MED LIST changes: +ATENOLOL 100MG100 MG PO; +BENZTROPINE ME0.5 MG PO; +CARBIDOPA-LEVO1 EAC5 PO; +CEFUROXIME500 MG PO; +CHLORTHALIDONE25 MG PO; +COMTAN200 MG PO; +HYDROCHLOROTH12.5 M1 PO; +HYDROCODON-ACE1 EAC8 PO; +JANUMET 50-1,01 EACH PO; +KLOR-CON 1010 MEQ PO; +LASIX 40 MG TAB40 MG PO; +MAGNESIUM400 MG PO; +METFORMIN HCL500 M3 PO; +MYRBETRIQ25 MG PO; +MYSOLINE50 MG PO; +NEURONTIN100 MG PO; +PEPCID20 MG PO; +TRIHEXYPHENIDYL2 M1
[2019-09-22 20:07] LABS: URINE BILIRUBIN NEGATIVE (Negative); URINE BLOOD NEGATIVE (Negative); URINE CLARITY CLEAR; URINE COLOR YELLOW; URINE GLUCOSE-RANDOM* NEGATIVE (Negative); URINE KETONES NEGATIVE (Negative); URINE LEUKOCYTES-REFLEX NEGATIVE (Negative); URINE NITRITE-REFLEX NEGATIVE (Negative); URINE PROTEIN (DIPSTICK) NEGATIVE (Negative); URINE SPECIFIC GRAVITY 1.025 (1.005-1.035); URINE UROBILINOGEN 0.2 E.U./dl (0.2-1.0)
[2019-09-22 21:10] VITALS: BP 117/66
== END 2019-09-22 21:10 | disposition home or self-care (01) ==
LOC: ER 18:13
PROVIDERS: Emergency Medicine
DX: M54.5 Low back pain (principal); I10 Essential (primary) hypertension; E11.9 Type 2 diabetes mellitus without complications; K21.9 Gastro-esophageal reflux disease without esophagitis; G89.29 Other chronic pain; Z90.49 Acquired absence of other specified parts of digestive tract; Z96.653 Presence of artificial knee joint, bilateral; Z85.828 Personal history of other malignant neoplasm of skin; Z91.041 Radiographic dye allergy status; Z88.6 Allergy status to analgesic agent

== ENCOUNTER 2019-09-26 23:32 | Emergency (ER) | payer OTHER ==
[~2019-09-26] VITALS: Ht 172.7 cm; Wt 93.4 kg
[2019-09-27] MEDS ORDERED: NORCO 5-325 TA1 EAC1 PO (01:47)
[2019-09-27 02:28] VITALS: BP 113/65
== END 2019-09-27 03:13 | disposition home or self-care (01) ==
LOC: ER 23:32
DX: M54.5 Low back pain (principal); M54.6 Pain in thoracic spine; G20 Parkinson's disease; G89.29 Other chronic pain; I10 Essential (primary) hypertension; E11.9 Type 2 diabetes mellitus without complications; K21.9 Gastro-esophageal reflux disease without esophagitis; G47.30 Sleep apnea, unspecified; F41.9 Anxiety disorder, unspecified; Z76.0 Encounter for issue of repeat prescription; Z90.49 Acquired absence of other specified parts of digestive tract; Z96.653 Presence of artificial knee joint, bilateral; Z85.828 Personal history of other malignant neoplasm of skin; Z91.041 Radiographic dye allergy status; Z88.6 Allergy status to analgesic agent

== ENCOUNTER 2019-09-30 22:59 | Emergency (ER) | payer OTHER ==
[~2019-09-30] VITALS: Ht 172.7 cm; Wt 93.4 kg
[~2019-09-30 22:59] MED LIST changes: +NORCO 5-325 TA1 EAC1 PO
[2019-09-30 23:29] LABS: URINE BILIRUBIN NEGATIVE (Negative); URINE BLOOD NEGATIVE (Negative); URINE CLARITY CLEAR; URINE COLOR YELLOW; URINE GLUCOSE-RANDOM* NEGATIVE (Negative); URINE KETONES NEGATIVE (Negative); URINE LEUKOCYTES-REFLEX NEGATIVE (Negative); URINE NITRITE-REFLEX NEGATIVE (Negative); URINE PROTEIN (DIPSTICK) NEGATIVE (Negative); URINE UROBILINOGEN 0.2 E.U./dl (0.2-1.0)
[2019-10-01 00:52] LABS: HEMATOCRIT 34.1 % (42.0-52.0); MCHC 32.1 g/dL (28.0-37.0); PLATELET COUNT 159 thou/uL (150-400); RBC 4.21 mil/uL (4.50-6.00); RDW 20.6 % (10.5-14.5); WBC 4.2 thou/uL (4.0-11.0)
[2019-10-01 00:54] LABS: CALCIUM 8.5 mg/dL (8.5-10.1); CREATININE 0.7 mg/dL (0.7-1.3); MAGNESIUM 1.7 mg/dL (1.8-2.4); POTASSIUM 3.8 mmol/L (3.5-5.1)
[2019-10-01 01:27] VITALS: BP 121/62
[2019-10-01 01:41] LABS: ABSOLUTE NEUTROPHILS 2.6 thou/uL (1.4-8.2); PLATELET ESTIMATE NORMAL
== END 2019-10-01 01:50 | disposition home or self-care (01) ==
LOC: ER 22:59
PROVIDERS: Emergency Medicine
DX: M54.9 Dorsalgia, unspecified (principal); G89.29 Other chronic pain; I10 Essential (primary) hypertension; E11.9 Type 2 diabetes mellitus without complications; K21.9 Gastro-esophageal reflux disease without esophagitis; G47.30 Sleep apnea, unspecified; F41.9 Anxiety disorder, unspecified; Z90.49 Acquired absence of other specified parts of digestive tract; Z96.653 Presence of artificial knee joint, bilateral; Z85.828 Personal history of other malignant neoplasm of skin; Z91.041 Radiographic dye allergy status; Z88.6 Allergy status to analgesic agent

== ENCOUNTER 2019-11-11 21:49 | Inpatient (IN) | payer OTHER ==
[~2019-11-11] VITALS: Ht 172.7 cm; Wt 103.4 kg
--- NOTE | ~2019-11-11 | HC ---
[facility] [place] [address] CONSULTATION Name: FERDINAND WALSH Room #: 202-P [facility] IN M.R.#: [id number] Admission: 11/11/19 Attend Phys: Marcela Bonilla MD Discharge: Date of : 36 Report #: [id number] THIS REPORT FOR: cc: BEKAH - Michelle family physician/PCP BEKAH - Michelle family physician/PCP Bobo Joaquin MD ~ CC: [facility] physician/PCP Marcela Bonilla DATE OF SERVICE: 11/14/2019 HISTORY OF PRESENT ILLNESS: The patient is an 84-year-old white male who has a history of Parkinson's disease, admitted with near syncope. He had a fall approximately 2 weeks ago and has noted increased weakness since that time. He was noted to have dizziness, thought to be related to polypharmacy as well as progression of his Parkinson's disease. He was noted to have a burst of SVT. Cardiology has been involved. He has an elevated troponin. He also was noted to have severe constipation. GI is recommending upper and lower endoscopy, although they note that this is currently on hold with the current COVID-19 crisis and trying to postpone any elective procedures. He was seen by speech therapy and has been placed on a mechanical soft nectar thickened liquid diet. We are seeing him in rehabilitation medicine consultation. PAST MEDICAL HISTORY: Includes Parkinson's disease. He has a history of non-insulin dependent diabetes mellitus, hypertension, controlled GERD, sleep apnea, anxiety, skin cancer, history of atrial fibrillation with ablation, BPH, chronic back pain. PAST SURGICAL HISTORY: Bilateral total knee replacements, left hip replacement, ORIF bilateral inguinal hernia repair, T and A. MEDICATIONS: Please see the full medication listing. ALLERGIES: IODINE. SOCIAL HISTORY: The patient lives with his son who has cerebral palsy and Tourette's. The patient has a lift chair at home and then the son does give him a little assist to get into the wheelchair. He says he uses his 's wheelchair. She has passed and he has been using his 's wheelchair, although he notes it is on the smaller side and apparently is having another wheelchair ordered for him. REVIEW OF SYSTEMS: Significant problems with constipation. GI is involved and he is now having some bowel movements. No current chest pain, shortness of breath. He does have slowed movement with his Parkinson's disease. [facility] [address] [place] [address] CONSULTATION Name: FERDINAND WALSH Room #: 202-P [facility] IN M.R.#: [id number] Admission: 11/11/19 Attend Phys: Marcela Bonilla MD Discharge: Date of : 36 Report #: [id number] PHYSICAL EXAMINATION: GENERAL: An 84-year-old white male in no obvious distress. He is alert, pleasant. Some dysarthric speech. HEENT: Otherwise appeared benign. VITAL SIGNS: His temperature is 97.2, pulse 72, respirations 18, blood pressure 137/77. NEUROLOGIC: He is alert. He does have some evidence of bradykinesia both upper extremities and lower extremities, there is some cogwheeling of the elbows and wrists. Strength is probably a grade 3+/5 both upper extremities. He notes he has bilateral shoulder arthritis and apparently has been told that he needs both shoulders replaced. He does have decreased range of motion of shoulders, which he notes is chronic. Lower extremities, bilateral knee incisions are well healed. Strength of the lower extremities is probably a grade 3+/5. He is max assist for bed mobility. He was max assist coming sit to stand, lower extremity dressing is total assist. ASSESSMENT: An 84-year-old white male with the following problems: 1. Parkinson's disease with significant functional deficits. 2. Dizziness, not related to polypharmacy/progression of Parkinson's disease. 3. Near syncope. 4. Elevated troponin. 5. Burst of supraventricular tachycardia. 6. Severe constipation with Gastroenterology involved. 7. Dysphagia, currently on nectar thickened liquids. PLAN: Insurance will need to be checked regarding rehab therapy options. We will be glad to follow along with you regarding his rehab therapy needs. By: 1134 1245 Bobo Joaquin MD /KIANNA
[2019-11-11 21:55] VITALS: BP 157/92
[2019-11-11 22:13] LABS: URINE BILIRUBIN NEGATIVE (Negative); URINE BLOOD NEGATIVE (Negative); URINE CLARITY CLEAR; URINE COLOR YELLOW; URINE GLUCOSE-RANDOM* NEGATIVE (Negative); URINE KETONES NEGATIVE (Negative); URINE LEUKOCYTES-REFLEX NEGATIVE (Negative); URINE NITRITE-REFLEX NEGATIVE (Negative); URINE PROTEIN (DIPSTICK) NEGATIVE (Negative); URINE SPECIFIC GRAVITY 1.015 (1.005-1.035); URINE UROBILINOGEN 0.2 E.U./dl (0.2-1.0)
[2019-11-11 22:15] LABS: ABSOLUTE NEUTROPHILS 3.6 thou/uL (1.4-8.2); EOSINOPHILS 5.6 % (0.0-3.0); HEMATOCRIT 27.6 % (42.0-52.0); HEMOGLOBIN 8.7 gm/dL (14.0-18.0); LYMPHOCYTES 17.7 % (24.0-44.0); MCH 23.2 pg (26.0-34.0); MCHC 31.4 g/dL (28.0-37.0); MCV 73.9 fL (80.0-100.0); MONOCYTES 10.5 % (1.0-8.0); PLATELET COUNT 192 thou/uL (150-400); POLYS 65.2 % (36.0-66.0); RBC 3.73 mil/uL (4.50-6.00); RDW 18.5 % (10.5-14.5); WBC 5.5 thou/uL (4.0-11.0)
[2019-11-11 22:24] LABS: CALCIUM 9.3 mg/dL (8.5-10.1); CREATININE 0.6 mg/dL (0.7-1.3); POTASSIUM 3.9 mmol/L (3.5-5.1)
[2019-11-11 22:33] LABS: ALBUMIN 3.4 g/dL (3.4-5.0); TOTAL BILIRUBIN 0.5 mg/dL (<0.1-1.0); TOTAL PROTEIN 7.1 g/dL (6.4-8.2); TROPONIN-I 0.1 ng/mL (<0.06)
[2019-11-11 22:38] LABS: OVALOCYTES FEW
[2019-11-11 22:39] LABS: ANISOCYTOSIS 2+; HYPOCHROMASIA 2+; MICROCYTES 1+; POLYCHROMASIA OCCASIONAL
[2019-11-11 22:40] LABS: LARGE PLATELETS RARE
[2019-11-12] VITALS (7 sets, daily range): BP systolic 114–149; BP diastolic 65–87
[2019-11-12 05:33] LABS: HEMATOCRIT 25.3 % (42.0-52.0); HEMOGLOBIN 7.9 gm/dL (14.0-18.0); MCH 23.2 pg (26.0-34.0); MCHC 31.4 g/dL (28.0-37.0); MCV 73.8 fL (80.0-100.0); PLATELET COUNT 184 thou/uL (150-400); RBC 3.43 mil/uL (4.50-6.00); RDW 18.9 % (10.5-14.5); WBC 3.9 thou/uL (4.0-11.0)
[2019-11-12 05:48] LABS: CALCIUM 8.7 mg/dL (8.5-10.1); CREATININE 0.7 mg/dL (0.7-1.3); MAGNESIUM 1.5 mg/dL (1.8-2.4); POTASSIUM 3.9 mmol/L (3.5-5.1); TROPONIN-I 0.1 ng/mL (<0.06)
[2019-11-12 06:55] LABS: ABSOLUTE NEUTROPHILS 2.5 thou/uL (1.4-8.2)
[2019-11-12 06:56] LABS: ANISOCYTOSIS 1+; HYPOCHROMASIA 2+; MICROCYTES 2+; PLATELET ESTIMATE NORMAL
--- NOTE | 2019-11-12 07:47 | NUR ---
RECEIVED REPORT FROM [facility] RN.PATIENT ARRIVED TO ROOM 202 AROUND 0030.PATIENT A/O X 4.COMPLAIN OF PAIN ON HIS RIGHT SHOULDER.TYLENOL GIVEN.VERBALIZED RELIEF.DENIES SOB.PATIENT HAS TREMORS.TURN Q2 HOURS AND NEEDED.INCONTINENT AT TIMES.EXTERNAL CATH PLACED.MONITOR SHOWS SR.POC CONTINUED.
--- NOTE | 2019-11-12 09:09 | NUR ---
REC REPORT/CARE OF PT AT SHIFT CHANGE, CONSULT FOR WOUND (DECUB) PRIOR NURSE UNAWARE, WILL EVAL SKIN, PT LETHARGIC THIS A.M. YET EASILY AROUSABLE AND ANSWERS QUESTIONS. SEE SEPARATE INTERVENTIONS FOR ASSESSMENTS, ENCOURAGED PT TO USE CALL LIGHT FOR ANY NEEDS AND HE DOES SUCCESSFUL RETURN DEMO. TURN Q2 FOR SKIN INTEGRITY. WILL CONTINUE TO MONITOR
--- NOTE | 2019-11-12 09:58 | EKG ---
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: [facility] 1935 Requested By: Kenrick Merida Order Number: [id number] MD: Sandoval Esqueda Measurements Intervals [place] Rate: 86 P: 79 TN: 165 QRS: -13 QRSD: 141 T: 18 QT: 412 QTc: 493 Interpretive Statements Sinus rhythm Right bundle branch block Compared to ECG 06/22/2019 08:04:30 Atrial premature complex(es) no longer present Electronically Signed On 11-12-2019 9:56:58 CDT by Sandoval Esquead [email or web address] <ELECTRONICALLY SIGNED> By: Sandoval Esqueda MD 11/12/19 0956 16 16 Sandoval Esqueda MD /EPI
--- NOTE | 2019-11-12 09:58 | EKG ---
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[facility] 1935 Requested By: Kenrick Merida Order Number: [id number] MD: Sandoval Esqueda Measurements Intervals [place] Rate: 85 P: [place]: QRS: -17 QRSD: 144 T: -4 QT: 408 QTc: 486 Interpretive Statements Atrial flutter Ventricular premature complex Right bundle branch block Nonspecific ST segment abnormality Compared to ECG 06/22/2019 08:04:30 Ventricular premature complex(es) now present Atrial premature complex(es) no longer present Electronically Signed On 11-12-2019 9:57:32 CDT by Sandoval Esqueda [email or web address] <ELECTRONICALLY SIGNED> By: Sandoval Esqueda MD 11/12/19 0957 [id number] [id number] Sandoval Esqueda MD /EPI
[2019-11-12 12:24] LABS: HEMATOCRIT 23.3 % (42.0-52.0); HEMOGLOBIN 7.4 gm/dL (14.0-18.0)
--- NOTE | 2019-11-12 20:09 | NUR ---
RECEIVED PT'S CARE AROUND 1600; PT. ON BED RESTING WITH EYES CLOSED; ANSWERED BACK TO NAME; ALERT TO PERSON; SITUATION & PLACE; REQUESTED PRN PAIN MEDICATION; EDUCATED ABOUT DRINKING THE REST OF CONTRAST FOR PROCEDURE; ST. UNDERSTANDING; AROUND [address]; PRN PAIN MEDICATION GIVEN AT RETURNED; ST. "TYLENOL DOES NOT WORK ON ME"; ACCEPTED PRN PAIN MEDICATION; RE-ASSESSMENT PT. RESTING WITH EYES CLOSED; PER DR. BARONE NOT TO PASS TRAY UNTIL CT RESULTS; AROUND 0630 DR. BARONE PAGED; ORDERS RECEICED; ASSESSMENT CHARGED; FOLLOWING POC; PASSED ON REPORT;
[2019-11-13 04:02] LABS: ABSOLUTE NEUTROPHILS 3.6 thou/uL (1.4-8.2); BASOPHILS 0.4 % (0.0-2.0); EOSINOPHILS 3.7 % (0.0-3.0); HEMATOCRIT 26.3 % (42.0-52.0); HEMOGLOBIN 8.3 gm/dL (14.0-18.0); MCH 23.5 pg (26.0-34.0); MCHC 31.8 g/dL (28.0-37.0); MCV 73.8 fL (80.0-100.0); MONOCYTES 11.2 % (1.0-8.0); PLATELET COUNT 195 thou/uL (150-400); POLYS 68.7 % (36.0-66.0); RBC 3.56 mil/uL (4.50-6.00); RDW 18.9 % (10.5-14.5); WBC 5.2 thou/uL (4.0-11.0)
[2019-11-13 04:23] LABS: ALBUMIN 3.3 g/dL (3.4-5.0); CALCIUM 8.9 mg/dL (8.5-10.1); CREATININE 0.9 mg/dL (0.7-1.3); MAGNESIUM 1.8 mg/dL (1.8-2.4); PHOSPHORUS 3.2 mg/dL (2.5-4.9); POTASSIUM 3.7 mmol/L (3.5-5.1); TOTAL BILIRUBIN 0.4 mg/dL (<0.1-1.0); TOTAL PROTEIN 6.9 g/dL (6.4-8.2)
[2019-11-13 04:45] VITALS: BP 157/80
--- NOTE | 2019-11-13 05:29 | NUR ---
PT ALERT AND ORIENTED. VSS. SR ON THE MONITOR. PT SEVERELY CONSTIPATED. GOLYTLY 1000 CC AND SUPPOSITORY GIVEN AT BEGINNING OF SHIFT. PT HAD BM, STOOL SAMPLE COLLECTED FOR BLOOD OCCULT. PT UNABLE TO MOVE BOWEL INDEPENDENTLY. RECTAL STUMULATION AND DIGITAL EVACUATION DONE. PT ALSO STATES THAT HE TAKES TRAMADOL AND NORCO 7.5/325 AND TYLANOL WASN'T HELPING. ORDERS CALLED TO MANAGER SPA CARLOS FOR CLARIFICATION. NPO NOTIFIED. PAIN MEDS RESSUMED AND X1 SECOND ORDER OF SUPPOSITORY RECEIVED. NO FURTHER C/O. NO CHEST PAIN. WILL CONTINUE WITH POC.
[2019-11-13 07:00] VITALS: BP 153/95
[2019-11-13 11:15] VITALS: BP 103/54
[2019-11-13 16:35] VITALS: BP 113/55
--- NOTE | 2019-11-13 19:52 | NUR ---
RECEIVED PT'S CARE AROUND 0710; PT. ON BED; ALERT; DURING ASSESSMENT ALERT TO PERSON, SITUATION; PLACE; FORGETFUL; ST. NO C/O PAIN; AM MEDICATIONS GIVEN; LARGE HARD STOOL DURING TURNING; THROUGH THE DAY TURNED FROM SIDE TO SIDE; REFUSED IT DURING THE AM; C/O PAIN DURING TURNINGS; PRN PAIN MEDICATION GIVEN ONCE DURING THE AFTERNOON; RE-ASSESSMENT RESTING WITH EYES CLOSED; LIQUID STOOLS DURING THE AFTERNOON; REFUSED LUNCH; SR ON THE MONITOR; ASSESSMENT CHARGED; FOLLOWING POC; PASSED ON REPORT;
[2019-11-13 19:58] VITALS: BP 93/43
--- NOTE | 2019-11-14 04:52 | NUR ---
ASSESSMENT DOCUMENTED.PT BEEN RESTING IN NO ACUTE DISTRESS.A/OX4 W/FORGETFULNESS.VSS.NSR ON MONITOR.RA W/O RESP DISTRESS.JACQUI BARNES.C/O PAIN THAT WAS CONTROLLED BY PAIN MED PER ORDERS.TURNED AND REPOSITIONED IN BED Q2H.NO OTHER CONCERNS VOICED.I WILL CONT TO MONITOR PER POC.
[2019-11-14 04:56] LABS: ABSOLUTE NEUTROPHILS 2.6 thou/uL (1.4-8.2); BASOPHILS 0.6 % (0.0-2.0); EOSINOPHILS 4.6 % (0.0-3.0); HEMATOCRIT 23.3 % (42.0-52.0); HEMOGLOBIN 7.6 gm/dL (14.0-18.0); LYMPHOCYTES 22.5 % (24.0-44.0); MCH 24.1 pg (26.0-34.0); MCHC 32.6 g/dL (28.0-37.0); MCV 73.7 fL (80.0-100.0); MONOCYTES 10.1 % (1.0-8.0); PLATELET COUNT 173 thou/uL (150-400); POLYS 62.2 % (36.0-66.0); RBC 3.16 mil/uL (4.50-6.00); RDW 19.6 % (10.5-14.5); WBC 4.3 thou/uL (4.0-11.0)
[2019-11-14 05:10] VITALS: BP 137/77
[2019-11-14 05:10] LABS: CALCIUM 8.5 mg/dL (8.5-10.1); CREATININE 0.6 mg/dL (0.7-1.3); MAGNESIUM 1.5 mg/dL (1.8-2.4); POTASSIUM 3.4 mmol/L (3.5-5.1)
--- NOTE | 2019-11-14 09:42 | HC ---
[facility] [place] [address] CONSULTATION Name: FERDINAND WALSH Room #: 202-P [facility] IN M.R.#: [id number] Admission: 11/11/19 Attend Phys: Igor Jones MD Discharge: Date of : 36 Report #: [id number] THIS REPORT FOR: cc: BEKAH - Michelle family physician/PCP BEKAH - Michelle family physician/PCP Sandoval Esqueda MD ~ CC: [facility] physician/PCP Igor Jones DATE OF SERVICE: 11/13/2019 CARDIOLOGY CONSULTATION INDICATION: Troponin abnormality. HISTORY OF PRESENT ILLNESS: This is an 84-year-old gentleman with a history of Parkinson's disease, hypertension, diabetes mellitus, general debility, gait instability, chronic pain syndrome, sleep apnea, presenting with dizziness. He was recently hospitalized for a fall, in fact he has had multiple hospitalizations for falls. It seems that his Parkinson's has progressed, he is unable to ambulate. He has been wheelchair bound, seems to have a difficult time at home. He lives with his son, who has other medical issues. The patient reports lightheadedness, requiring him to sit. He denies any loss of consciousness, chest pain or dyspnea. In the ER, 1 ECG reveals atrial flutter. There is baseline artifact from tremors, there is no evidence for atrial flutter. The EKG reveals sinus rhythm with a right bundle branch block. The troponin is elevated at 0.1, may be related to oxygen supply/demand mismatch. He does have underlying anemia, currently undergoing evaluation. PAST MEDICAL HISTORY: Parkinson's, diabetes mellitus, history of falls with gait instability. History of chronic pain syndrome. History of atrial fibrillation, status post ablation in the past. Hypertension, anemia, known to have chronic kidney disease with underlying renal mass, evaluation has not been pursued due to his comorbid conditions. ALLERGIES: IODINE, OXYCODONE. MEDICATIONS: At home include hydrocodone, lisinopril, simvastatin, Lasix daily, carbidopa/levodopa, primidone, Neurontin, Janumet, Flomax. SOCIAL HISTORY: Denies tobacco use. Lives with his son. REVIEW OF SYSTEMS: A full 10-point review of systems performed. Only the pertinent positives and negatives are described in the HPI. PHYSICAL EXAMINATION: [address] [address] CONSULTATION Name: FERDINAND WALSH Room #: 202-P [facility] IN M.R.#: [id number] Admission: 11/11/19 Attend Phys: Igor Jones MD Discharge: Date of : 36 Report #: [id number] VITAL SIGNS: Blood pressure is 150/90, heart rate is 70 beats per minute. GENERAL APPEARANCE: This is an elderly appearing male, in no acute distress. HEENT: Normocephalic, atraumatic. Oral mucosa moist. NECK: Supple. LUNGS: Clear to auscultation. CARDIAC: Regular rate and rhythm, S1, S2 positive. ABDOMEN: Soft, protuberant, bowel sounds positive. EXTREMITIES: No cyanosis, trace edema. ECG reveals sinus rhythm, right bundle-branch block. LABORATORY VALUES: Troponin is 0.1 x3. Hemoglobin is 8.3, creatinine is 0.9. ASSESSMENT AND PLAN: 1. Dizziness/lightheadedness, probably related to polypharmacy and progression of Parkinson's. 2. Abnormal ECG, there is a question of atrial flutter. I reviewed all of his ECGs, no evidence for atrial flutter. Continue on telemetry for now. 3. Troponin elevation of 0.1, denies any chest pains or shortness of breath. We will obtain an echo at this time. If he remains clinically asymptomatic, would pursue a strategy of conservative management given his comorbid conditions. 4. Hypertension, continue with medications. 5. Parkinson's, continue with PT and medications. 6. Anemia, continue with GI evaluation. <ELECTRONICALLY SIGNED> By: Sandoval Esqueda MD 11/14/19 0942 1100 1228 Sandoval Esqueda MD /nt
--- NOTE | 2019-11-14 10:45 | 2DMMODE ---
[facility] [address] [place] [address] 2 D/M-MODE ECHOCARDIOGRAM Name: FERDINAND WALSH Room #: 202-P ADM IN M.R.#: [id number] Admission: 11/11/19 Attend Phys: Igor Jones MD Discharge: Date of : 36 Report #: [id number] THIS REPORT FOR: cc: BEKAH - No family physician/PCP FAM - No family physician/PCP Chepe Hampton MD ~ APPROVED REPORT Study performed: 11/14/2019 09:47:46 EXAM: Comprehensive 2D, Doppler, and color-flow Echocardiogram Patient Location: Bedside Room #: 202 Status: routine BSA: 2.16 HR: 80 bpm BP: 137/77 mmHg Rhythm: NSR Other Information Study Quality: Adequate Indications Diabetes Elevated Troponin Hypertension/HDD 2D Dimensions RVDd: 47.24 mm IVSd: 14.66 (7-11mm) LVOT Diam: 22.14 (18-24mm) LVDd: 42.83 mm PWd: 13.84 (7-11mm) Ascending Ao: 34.79 (22-36mm) LVDs: 29.04 (25-40mm) Aortic Root: 34.79 mm Volumes Left Atrial Volume (Systole) Single Plane 4CH: 88.00 mL Single Plane 2CH: 58.30 mL LA ESV Index: 37.00 mL/m2 Aortic Valve AoV Peak Steven.: 1.94 m/s AO Peak Gr.: 15.08 mmHg LVOT Max P.00 mmHg LVOT Max V: 1.32 m/s [facility] [address] [place] [address] 2 D/M-MODE ECHOCARDIOGRAM Name: JACOB WALSHJOEL Room #: 202-P [facility] IN ..#: [id number] Admission: 11/11/19 Attend Phys: Igor Jones, Discharge: Date of : 36 Report #: [id number] Vmax: 2.62 cm2 Mitral Valve E/A Ratio: 2.1 MV Decel. Time: 290.43 ms MV E Max Steven.: 0.99 m/s MV A Steven.: 0.47 m/s MV PHT: 84.22 ms IVRT: 58.82 ms Pulmonary Valve PV Peak Steven.: 1.25 m/s PV Peak Gr.: 6.20 mmHg Pulmonary Vein P Vein S: 0.46 m/s P Vein A: 0.47 m/s P Vein D: 0.54 m/s P Vein A Dur.: 79.6 msec P Vein S/D Ratio: 0.85 Tricuspid Valve TR Peak Steven.: 2.65 m/s TR Peak Gr.: 28.18 mmHg Left Ventricle The left ventricle is normal size. Mild to moderate concentric left ventricular hypertrophy. The left ventricular systolic function is normal. The left ventricular ejection fraction is within the normal range. LVEF is 60-65%. Transmitral Doppler flow pattern suggests restrictive physiology. Right Ventricle Right ventricle is mildly dilated. The right ventricular systolic function is normal. Atria Left atrium is mildly dilated. The right atrium size is normal. Aortic Valve The aortic valve is normal in structure. No aortic regurgitation is present. There is no aortic valvular stenosis. Mitral Valve Mild mitral annular calcification. Trace mitral regurgitation. No evidence of mitral valve stenosis. Tricuspid Valve [facility] [address] [place] [address] 2 D/M-MODE ECHOCARDIOGRAM Name: NICOFERDINAND Room #: 202-P ADM IN M.R.#: [id number] Admission: 11/11/19 Attend Phys: Igor Jones, Discharge: Date of : 36 Report #: [id number] The tricuspid valve is normal in structure. Mild tricuspid regurgitation. PAP is estimated at 28 mmHg + estimated RA pressure. Pulmonic Valve Pulmonic valve is not well visualized. Great Vessels The aortic root is normal in size. The inferior vena cava is not visualized. Pericardium There is no pericardial effusion. <Conclusion> The left ventricle is normal size. LVEF is 60-65%. Right ventricle is mildly dilated. Left atrium is mildly dilated. The aortic valve is normal in structure. Mild mitral annular calcification. Trace mitral regurgitation. The tricuspid valve is normal in structure. Mild tricuspid regurgitation. PAP is estimated at 28 mmHg + estimated RA pressure. The tricuspid valve is normal in structure. Mild tricuspid regurgitation. PAP is estimated at 28 mmHg + estimated RA pressure. Pulmonic valve is not well visualized. There is no pericardial effusion. <ELECTRONICALLY SIGNED> By: Chepe Hampton MD 11/14/19 1044 1044 1044 Chepe Hampton MD /INF
[2019-11-14 12:00] VITALS: BP 112/52
--- NOTE | 2019-11-14 15:06 | NUR ---
WOUND CARE CONSULT; ESCORIATED BUTTOCKS/ERYTHEMA WITH NO S/S OF INFECTION. RECOMMEDNATION; WOUND CARE TO: GENTLY CLEANSE WITH NS OR WOUND CLEANSER, APPLY MOISTURE BARRIER CREAM DAILY/PRN DISCUSSED WITH RN
--- NOTE | 2019-11-14 15:34 | NUR ---
ASSUMED CARE AT SHIFT CHANGE ALERT AND ORIENTED X3-4, AND FORGETFUL. ASSESSMENT DOCUMENTED,VSS AND SR/SA/BBB ON THE MONITOR. PATIENT HAD MULTIPLE BM, AND REMIANS ON CLEAR LIQUID DIET. MEDICATED FOR LOWER/UPPER BACK PAIN NEEDED. WILL CONTINUE WITH POC.
[2019-11-14 16:00] VITALS: BP 133/71
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
[2019-11-14 20:01] VITALS: BP 154/87
[2019-11-15] VITALS (8 sets, daily range): BP systolic 124–159; BP diastolic 72–82
--- NOTE | 2019-11-15 04:02 | NUR ---
PT ALERT AND ORIENTED. VSS. PT HAS BEEN NPO SINCE MIDNIGHT. FINISHED DRINKING GOLYTLY. PASS LOOSE DARK STOOL X 6 .Q2 TURNS. PT C/O NECK AND BACK PAIN. NO CHEST PAIN, NAUSEA OR VOMITING REPORTED. WILL CONTINUE TO MONITOR.
[2019-11-15] MEDS ORDERED: NORCO 7.5-3251 EACH PO (09:26)
[2019-11-15] MEDS ORDERED: MIRALAX17 GM PO (09:27)
--- NOTE | 2019-11-15 10:52 | NUR ---
FAXED REFERRAL TO [facility] SPOKE WITH GINGER IN INTAKE SHE RECEIVED ORDERS CAN ACCEPT. FAXED DC ORDERS/SUMMARY RECEIVED CONFIRMATION AND [facility] WILL NOTIFY PT TIME OF VISITS.
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
--- NOTE | 2019-11-15 16:16 | NUR ---
PT CARE ASSUMED APPROXIMATELY 0700. PT ASSESSMENTS CHARTED. PT MEDICATION CHARTED. JACQUI D/C'Jacqueline. PT TRANSFERRED TO SENIOR SUITES. [employer], [employer] AND [employer] REQUESTED BY CASE MANAGEMENT TRANSFERRED WITH PT.
--- NOTE | 2019-11-15 16:44 | NUR ---
Patient transferred from [facility], received report from RN Bacilio. Patient arrived on the unit per wheel chair. 2 person assist to bed. call light on reach, bed in low position, fall precaution in place, patient reports pain in his back , 04/02. will give pain analgesic as ordered. Will continue to monitor.
--- NOTE | 2019-11-16 05:30 | NUR ---
Assumed pt care at 1900. Pt's A/OX4 w/forgetfulness noted. Pt very drowsy at beginning of shift but awake most of the night. Medicated per EMAR for back pain with relief reported. Max assist with transfers, [place] condom catheter applied at HS and patent draining light yellow urine.Incontinent of bowels. Fall precautions in place and calls approp for help.
[2019-11-16 06:03] LABS: HEMATOCRIT 25.8 % (42.0-52.0); HEMOGLOBIN 8.1 gm/dL (14.0-18.0); MCH 23.4 pg (26.0-34.0); MCHC 31.3 g/dL (28.0-37.0); MCV 74.8 fL (80.0-100.0); RBC 3.45 mil/uL (4.50-6.00); RDW 19.4 % (10.5-14.5); WBC 3.9 thou/uL (4.0-11.0)
[2019-11-16 09:05] VITALS: BP 165/92
--- NOTE | 2019-11-16 13:11 | NUR ---
CALL RECEIVED FROM [place] AT [employer] GIVING DENIAL OF AUTHORIZATION FOR ACUTE REHAB STAY. PEER TO PEER, IF DESIRED, MUST BE COMPLETED BY 4:30 THIS DATE, 11/16/19. PHONE NUMBER IS [phone], OPTION 4. PENDING REFERENCE NUMBER IS [id number]. MADISON STATED THAT SKILLED WAS NOT APPROVED FOR PATIENT EITHER. ADMINISTRATIVE COORDINATOR INFORMED.
--- NOTE | 2019-11-16 14:29 | NUR ---
WOUND CARE F/U; THE BUTTOCKS WOUND IS HEALED. NO NEED TO FOLLOW THIS PATIENT. WE WILL CONTINUE BARRIER CREAM APPLICATIONS AT THIS TIME. DISCUSSED WITH CHARLA
--- NOTE | 2019-11-16 15:46 | NUR ---
FAXED REFERRAL TO [facility] SPOKE WITH FARIDEH IN ADM SHE RECEIVED REFERRAL AND WILL REVIEW. DP TO FOLLOW.
[2019-11-16 17:00] VITALS: BP 122/64
--- NOTE | 2019-11-16 17:20 | NUR ---
ASSUMED PATIENT CARE AT 0700, PATIENT IS AOX4. PATIENT DOES C/O PAIN AND PRN PAIN MEDS WERE GIVEN. PATIENT WORKED GREAT WITH PT AND OT TODAY AND WAS ABLE TO WALK SEVERAL STEPS AND GET UP AND OUT OF THE CHAIR. TRANSFER TO 5N WAS DENIED, NEW REQUEST SENT TO [facility]. PATIENT IS DOING MUCH BETTER WITH HIS DIET AFTER SPEECH THERAPY SAW HIM TODAY AND MADE SLIGHT CHANGES AND LONG HE CAN ORDER HIS OWN FOOD. [place] CATH IN PLACE AND PATENT. FALL PRECAUTIONS IN PLACE, CALL LIGHT WITHIN REACH, AND PATIENT DOES GREAT CALLING FOR ASSISTANCE.
[2019-11-16 19:28] VITALS: BP 111/58
--- NOTE | 2019-11-17 04:16 | NUR ---
Assumed pt care at 1900. Pt ia A/OX4, VSS. Up with mod assist of 1 RW/GB. C/o back pain medicated per EMAR with relief reported. VSS. [place] catheter in place draining yellow urine. Fall precautions in place,calls approp for help. Resting w/o distress noted, will continue to monitor pt.
[2019-11-17 07:13] VITALS: BP 160/88
[2019-11-17 14:52] VITALS: BP 132/73
--- NOTE | 2019-11-17 15:41 | NUR ---
AWAITING INSURNACE AUTH FOR PT TO GO TO [facility]. CM TO FOLLOW INDICATED WITH DC PLANNING.
--- NOTE | 2019-11-17 18:31 | NUR ---
ASSUMED CARE OF PATIENT AT 0715, PATIENT ALERT AND ORIENTED X 4, FORGETFUL. UP WITH MAX ASSIST X 2 TO CHAIR. PATIENT CONTINUES TO C/O OF MULTIPLE AREAS OF PAIN, RECEIVED HYDROCODONE 7.5MG X 2 THIS SHIFT. PATIENT WORKED WITH PT/OT THIS SHIFT, HAD A SHOWER. PATIENT HAS LEFT FOREARM IV, RECEIVED IRON IV PUSH THIS AM. [place] CATHETER IN PLACE, WITH ADEQUATE AMT. OF URINE NOTED IN BAG. REDNESS TO BUTTOCKS, BARRIER CREAM APPLIED. STILL WAITING ON INS. AUTH, FOR [place]/SNF. WILL CONTINUE TO MONITOR.
[2019-11-17 19:09] VITALS: BP 113/59
[2019-11-18 03:19] VITALS: BP 153/94
--- NOTE | 2019-11-18 05:09 | NUR ---
Assumed pt care at 1900. A/OX4 with forgetfulness noted. VSS.Pt c/o back pain but declined need for pain meds. Up with moderate assist RW/GB. Condom catheter reapplied at HS w/o problems noted and moisture barrier applied to buttocks.Fall precautions in place, pt calls appropriately for help. Resting quietly w/o any distress noted. Will continue to monitor pt.
[2019-11-18 09:16] VITALS: BP 129/74
--- NOTE | 2019-11-18 09:40 | NUR ---
Assess due to length of stay. Admitted with chest pain and dizziness which have resolved. Pt reports excellent appetite and really likes to drink ensure supplements-wants 1 each meal. Wts averaging about 220-228. Had excoriated buttocks which wound care has indicated as healing. On bowel regimen for chronic constipation. Low nutrition risk
--- NOTE | 2019-11-18 10:52 | NUR ---
ON-GOING ASSESSMENT: KANDY SPOKE WITH MADISON Inman FROM [employer] VIA PHONE AND SHE STATES DUE TO THE COVID 19 THAT [facility] HAS LIFTED THE REQUIREMENT FOR PATIENTS TO GET PRIOR AUTH PRIOR TO GOING TO ACUTE REHAB/SNF. SHE STATES ALL PATIENTS WILL BE APPROVED FOR THREE DAYS AND THEN RE-REVIEWED FROM THAT POINT ON. SHE STATES IT IS PATIENTS CHOICE WHETHER HE GOES TO ACUTE REHAB OR SNF. KANDY ASKED THAT WE GET THIS IN WRITING AND NOTIFIED CM DIRECTOR. CM NOTIFIED SW WORKING ON PATIENTS D.C. PLANS WERE FOR PATIENT TO GO TO [facility] AND SW WORKING WITH BRANDON IN ATTEMPTS TO GET PATIENT TO SNF.
--- NOTE | 2019-11-18 15:42 | NUR ---
Due to COVID 19 insurance is waiving need for auth for skilled/rehab allowing 3 days of skilled/rehab. Sp with [facility] who cont to not be accepting of patient as limnited therapy for patient on weekend and not enough days to support work from facility. Sp with [facility] RN practioner and liason. Patient accepted to 5[facility] however limited therapy on Thursday. Director of [facility] approved patient to stay on unit weekend and transition to [facility] on Thursday. Discussed with patient initially going home with HH care. Patient reports he wants more therapy rehab prior to home. He prefers [facility] to stay at hospital for therapy. Plan home with HH care with [facility] [place]. W/C ordered for patient for home with [facility]. Need to call [facility] [place] to coordinate josiah. Patient reports if needs private dty at [place] he can afford a few days for approx 5 hours but hopes he will not need. Patient will need transport home at [place].
[2019-11-18 16:00] VITALS: BP 94/53
--- NOTE | 2019-11-18 19:36 | NUR ---
ASSUMED CARE AT 0715, PATIENT ALERT AND ORIENTED X 4, FORGETFUL. PATIENT UP WITH MAX ASSIST X 1-2 WITH GB AND WALKER. PATIENT C/O PAIN WITH MULTIPLE AREAS, HYDROCODONE 7.5 MG 1 TABLET AND TRAMADOL 1 TABLET GIVEN THIS SHIFT. PATIENT C/O NAUSEA, ZOFRAN 4 MG IV GIVEN WITH GOOD RELIEF. PATIENT C/O NECK AND SHOULDER PAIN LEFT SIDE, CT SCAN DONE THIS EVENING. HEATING PAD ORDERED FOR COMFORT. [place] CATH IN PLACE. INSURANCE DENIED SKILLED FACILITY, PATIENT WAS GOING HOME WITH HOMEHEALTH, BUT PLANS CHANGED PATIENT WILL STAY UNITL THURSDAY AND GO TO REHAB FOR 3 DAYS, WILL DISCHARGE ON THURSDAY. WILL CONTINUE TO MONITOR.
[2019-11-18 19:37] VITALS: BP 150/81
[2019-11-19 04:50] VITALS: BP 148/80
--- NOTE | 2019-11-19 05:31 | NUR ---
PATIENT ALERT AND ORIENTED X4. MEDICATED FOR PAIN X1 DURING THE NIGHT FOR BACK PAIN. PATIENT ABLE TO SLEEP. TX CATHETER TO D/D. BS MONITORED PER ORDER. AK PAD TO LEFT SHOULDER WITH SOME RELIEF. WILL MONITOR.
[2019-11-19 07:12] VITALS: BP 160/86
[2019-11-19 15:51] VITALS: BP 104/54
[2019-11-19 20:01] VITALS: BP 135/62
--- NOTE | 2019-11-20 04:00 | NUR ---
PATIENT ALERT AND ORIENTED X4. MEDICATED FOR HEADACHE X1. GIVEN ALPRAZOLAM X1. RESTED OFF AND ON DURING THE NIGHT. BS MONITORED PER ORDER. PLEASANT AND COOPERATIVE. TX CATHETER TO D/D WITH YELLOW URINE. RESTING AT TIME OF NOTE. WILL MONITOR,.
[2019-11-20 07:05] VITALS: BP 160/82
[2019-11-20 15:15] VITALS: BP 138/69
--- NOTE | 2019-11-20 17:36 | NUR ---
ASSUMED CARE AT 0700. ALERT AND ORIENTED. RA. TOLERATING PO. MALE EXTERNAL CATHETER IN PLACE DRAINING PROPERLY. BM TODAY. PAIN BEING CONTROLLED WITH MEDICATION. UP TO SHOWER AND LINEN CHANGE. NO CONCERNS VOICED TODAY OTHER THAN "WANTING COFFEE" WILL CONTINUE TO MONITOR
[2019-11-20 19:23] VITALS: BP 141/81
[2019-11-21 04:15] VITALS: BP 171/91
--- NOTE | 2019-11-21 04:39 | NUR ---
PATIENT ALERT AND ORIENTED X4. BEDREST DURING THE NIGHT. BS MONITORED PER ORDER. NO BM DURING THE NIGHT. TX CATHETER TO D/D WITH YELLOW URINE. DENIES PAIN THIS AM AND DURING THE NIGHT. RESTING QUIETLY. WILL MONITOR.
--- NOTE | 2019-11-21 11:11 | NUR ---
ASSUMED PATIENT CARE AT 0700. PATIENT IS AOX4. PATIENT WORKED WITH PT/OT AND UP IN THE CHAIR FOR BREAKFAST. DUE TO PATIENT NOT SLEEPING WELL LAST NIGHT PATIENT PREFERRED TO BE IN BED TO REST. PATIENT TRANSFERRING TO 5N AND REPORT GIVEN TO NURSE COPELAND. [place] CATHETER HAS BEEN REMOVED. FALL PRECAUTIONS ARE IN PLACE AND CALL LIGHT WITHIN REACH.
--- NOTE | 2019-11-21 11:17 | NUR ---
PT HAS BEEN ACCEPTED TO THE REHAB UNIT FOR TODAY. THANK YOU FOR THIS CONSULT.
--- NOTE | 2019-11-21 11:34 | NUR ---
WENT OVER DISCHARGE PAPERWORK, PT VERBALIZES UNDERSTANDING. PIV DISCONTINUED WITHOUT COMPLLICATIONS.
--- NOTE | 2019-11-21 13:16 | NUR ---
DISCHARGE NOTE: SW reviewed chart and spoke with nursing and attending physician. Pt is medically stable for discharge to 5N today. SW confirmed with [facility] vocational rehabilitation administrator. Pt was discharged to 5[facility] earlier today. Pt aware and in agreement with discharge plan. Rehab CM to follow and assist as needed with discharge planning.
== END 2019-11-21 11:44 | DRG 308 ==
LOC: ER 21:49 → 2N 23:27 → 4N 23:27 → EROBS 23:27 → 2N 11-12 00:20 → ENTRNSPT 11-15 16:07 → 4N 11-15 16:25
PROVIDERS: Emergency Medicine; Nurse Practitioner; ADMIT Internal Medicine
DX: I47.1 Supraventricular tachycardia (principal); R53.2 Functional quadriplegia; I48.92 Unspecified atrial flutter; R79.89 Other specified abnormal findings of blood chemistry; K59.03 Drug induced constipation; D50.9 Iron deficiency anemia, unspecified; L89.90 Pressure ulcer of unspecified site, unspecified stage; Z90.49 Acquired absence of other specified parts of digestive tract; Z96.653 Presence of artificial knee joint, bilateral; K21.9 Gastro-esophageal reflux disease without esophagitis; F41.9 Anxiety disorder, unspecified; G47.33 Obstructive sleep apnea (adult) (pediatric); G89.4 Chronic pain syndrome; N18.9 Chronic kidney disease, unspecified; N40.0 Benign prostatic hyperplasia without lower urinary tract symptoms; M54.9 Dorsalgia, unspecified; I48.91 Unspecified atrial fibrillation; G20 Parkinson's disease; E11.22 Type 2 diabetes mellitus with diabetic chronic kidney disease; I12.9 Hypertensive chronic kidney disease with stage 1 through stage 4 chronic kidney disease, or unspecified chronic kidney disease; R13.10 Dysphagia, unspecified; K59.00 Constipation, unspecified; K42.9 Umbilical hernia without obstruction or gangrene; M54.16 Radiculopathy, lumbar region; M54.12 Radiculopathy, cervical region; E53.8 Deficiency of other specified B group vitamins; T40.605A Adverse effect of unspecified narcotics, initial encounter; Y92.89 Other specified places as the place of occurrence of the external cause; Z88.6 Allergy status to analgesic agent; Z91.041 Radiographic dye allergy status; Z98.42 Cataract extraction status, left eye; Z98.41 Cataract extraction status, right eye; Z79.891 Long term (current) use of opiate analgesic; Z74.01 Bed confinement status; Z79.899 Other long term (current) drug therapy
CPT/HCPCS: 10081; 10091; 10790

== ENCOUNTER 2019-11-21 09:31 | Inpatient (IN) | payer OTHER ==
[~2019-11-21] VITALS: Ht 172.7 cm; Wt 98.4 kg
[~2019-11-21 09:31] MED LIST changes: +MIRALAX17 GM PO; +NORCO 7.5-3251 EACH PO
[2019-11-21 11:45] VITALS: BP 154/84
--- NOTE | 2019-11-21 14:24 | NUR ---
chart review. pt working with therapy unable to visit with him via phone called. noted per chart, pt live at home with his son who cerebral pal and tourette's. pt was independent with use of lift chair, has walker and shower bench at home. manage own medication. been to skilled rehab and had hh in past [facility]. will cont following as needed for dc needs.
--- NOTE | 2019-11-21 14:33 | NUR ---
PT ARRIVED AT 1130 FROM [facility]. VITALS ARE STABLE. PT C/O PAIN BUE, LLE AND BACK (CHRONIC), TRAMADOL ADMINISTERED NEEDED. PT HAS BLE EDEMA, ENCOURAGED TO ELEVATE EXTREMITIES AND NESS HOSE ORDERED. PT HAS REDNESS AROUND HIS SACRAL AREA, BARRIER CREAM APPLIED. PT IS ALERT AND ORIENTED*4, [place]. UP WITH 2MOD ASSIST, GB AND WALKER AND TOLERATED WELL. Q1H VISUAL CHECKS. CALL LIGHT WITHIN REACH. FALL PRECAUTIONS IN PLACE
--- NOTE | 2019-11-21 23:06 | NUR ---
PT ASSESSMENT DONE AND VSS. MEDS/ACCU CK DONE AND WELL TOLERATED. FALL PRECAUTIONS IN PLACE. SLEEPING WELL OVERNIGHT. CONDOM CATHETER APPLIED AT HS. CALL LIGHT IN REACH. HOURLY ROUNDING. WILL CONTINUE TO MONITOR.
[2019-11-22 04:57] LABS: HEMATOCRIT 25.9 % (42.0-52.0); HEMOGLOBIN 8.2 gm/dL (14.0-18.0); MCH 24.6 pg (26.0-34.0); MCHC 31.6 g/dL (28.0-37.0); MCV 77.9 fL (80.0-100.0); RBC 3.32 mil/uL (4.50-6.00); RDW 26.1 % (10.5-14.5); WBC 3.7 thou/uL (4.0-11.0)
[2019-11-22 05:09] LABS: CREATININE 0.5 mg/dL (0.7-1.3)
[2019-11-22 07:45] VITALS: BP 134/75
--- NOTE | 2019-11-22 13:24 | NUR ---
team meeting, recommendation: diet mech soft thin, had cxr wet sounds. working with speech therapy.
[2019-11-22 19:15] VITALS: BP 128/71
--- NOTE | 2019-11-22 19:51 | NUR ---
ASSUMED CARE AT 0700, PT WAS LETERGIC BUT RESPONSIVE DURING SHIFT, PROVIDER NOTIFIED ANND ASSESSED PT AT BEDSIDE. NO NEW ORDERS GIVEN. CXR DONE TODAY AND PT PLACED ON NECTER THICKENED LIQUIDS. TOLERATES MEDS WHOLE IN APPLESAUCE. INCONTINENT OF B&B, BM TODAY, AND CONDOM CATH PLACED THIS EVENING. BED IN LOWEST POSITION, CALL LIGHT WITHIN REACH, WILL CONTINUE TO MONITOR PER POC.
--- NOTE | 2019-11-23 03:10 | NUR ---
MEDS WITH APPLESAUCE, NECTAR THICK LIQUIDS BY THE SPOONFUL. SURPRISED THAT HE NEEDS NECTAR THICK, EXPLAINED TO PATIENT THAT CXR SHOWS INFILTRATE AND THAT THERE ARE PLANS TO DO ANOTHER VIDEO SWALLOW. ADVISED TO BE AWAKE AND CONCENTRATE DURING THE SWALLOW STUDY AND HE MIGHT PASS AND GET BACK TO THIN LIQUIDS.
[2019-11-23 08:34] VITALS: BP 152/92
--- NOTE | 2019-11-23 10:50 | NUR ---
FAXED CLINICAL UPDATE TO [facility] SPOKE WITH MAU IN INTAKE SHE RECEIVED UPDATE. ANTICIPATE DC 12/05 DP TO FOLLOW.
[2019-11-23 10:51] VITALS: BP 152/92
--- NOTE | 2019-11-23 11:52 | NUR ---
AMAURY reviewed chart. SW spoke with pt via phone. AMAURY discussed with pt the discharge plan to go home with [facility] when medically stable. Sergei is also working on getting pt a w/c upon discharge. Pt states that he is keeping his son updated several times throughout the day. Pt makes his own decisions. Pt is agreeable with discharge plan. Awaiting input from insurance regarding discharge timeframe. Case Mgmt is following to assist as needed with discharge planning.
--- NOTE | 2019-11-23 14:00 | NUR ---
ASSUMED CARES AT 0700. PT AWAKE, ALERT AND ORIENTED*4. C/O DELMI SHOULDER PAIN AND LOWER BACK, REFUSED TO TAKE TRAMADOL STATING IT DOESN'T HELP WITH THE PAIN. VITALS REMAIN STABLE. LS SOUNDS CONGESTED BUE, SATS>92% ON RA. ABDOMEN SOFT BUT DISTENDED, *2LARGE HARD STOOLS THIS SHIFT, BS ACTIVE*4. PT HAD VIDEO SWALLOW THIS AM, UPGRADED TO THIN LIQUIDS WITH SPEECH PITCHER ONLY. EXTERNAL MALE CATHETER REMAINS IN PLACE AND PATENT, URINE IS DARK YELLOW AND CLEAR. PT UP WITH 1MOD ASSIST, GB AND WALKER. AMBULATED WITH THERAPY AND TOLERATED WELL. Q1H VISUAL CHECKS. CALL LIGHT WITHIN REACH. FALL PRECAUTIONS IN PLACE
[2019-11-23 21:28] VITALS: BP 142/73
--- NOTE | 2019-11-23 23:13 | NUR ---
PROGRESS PT A/O X4 UP WITH GB WALKER ANDMAX ASSIST TAKES A LOT OF CUEING TO GET HIM IN PLACE FOR TRANSFERS. PT WORRIED ABOUT SON WHO HAS CP AND TORRETTES SYNDROME. BOTH LIVE AND HELP CARE FOR EACH OTHER. VSS, PT REPORTS PAIN TO BOTH LEGS AND BILATERAL SHOULDERS TAKING ULTRAM AND NEURONTIN WITH EFFECT. CONTINUE TO ASSIST ACTIVITY INCREASE INDEPENDENCE WITH ADLS.
--- NOTE | 2019-11-23 23:18 | NUR ---
PROGRESS PT A/O X4 UP WITH GB WALKER MAX CUES PT DOESN'T GIVE HIMSELF MUCH ROOM FOR PIVOT TRANSFERS. NEEDS A LOT OF CUES. TAKING TRAMADOL AND NEURONTIN FOR PAIN WITH EFFECT. APPETITE IMPROVED EATING MORE AND HAS BETTER PO FLUID INTAKE, CONDOM CATH IN PLACE D/T INCONTINENCE OF BLADDER. HAD 2 LARGE BM'S THIS SHIFT. ACCUCHECKS CONTINUE HAS SPEECH CUP TO DRINK OUT OF IT FOR PATIENTS SAFETY DOING WELL NO CHOKING OR COUGHING NOTED.
--- NOTE | 2019-11-24 05:05 | NUR ---
Assumed pt care at 2300. Pt's A/OX4,VSS. Up from WC to bed with moderate assist. Medicated for pain per EMAR with relief reported. Pt incontnient of bladder, condom catheter reapplied w/o problems. Oxygen placed at HS @ 2L/NC. Resting on and off through the night. Call light/personal items within reach.
[2019-11-24 08:00] VITALS: BP 144/84
--- NOTE | 2019-11-24 19:45 | NUR ---
ASSUMED CARES AT 0700. PT AWAKE, ALERT AND ORIENTED*4. C/O DELMI SHOULDER AND UPPER BACK PAIN, TRAMADOL ADMINISTERED NEEDED. VITALS REMAIN STABLE. LS REMAIN COARSE, PT HAS A PRODUCTIVE COUGH, O2 SATS REMAIN STABLE. ABDOMEN IS SOFT BUT DISTENDED, BS ACTIVE *4, *2 LG BM REPORTED LAST NIGHT. PT STATED, "I GO TO BED HUNGRY, THE FOOD IS TOO LITTLE"/THOR. MEAL ORDER INCREASED TO DOUBLE POTION. EXTERNAL MALE CATHETER REMAINS INTACT AND PATENT, URINE IS DARK YELLOW AND CLEAR WITH NO FOUL ODOR. PT UP WITH MOD ASSIST, GB AND WALKER AND TOLERATED WELL. Q1H VISUAL CHECKS. CALL LIGHT WITHIN REACH. FALL PRECAUTIONS IN PLACE
[2019-11-24 19:48] VITALS: BP 100/57
--- NOTE | 2019-11-25 02:29 | NUR ---
TOOK OVER PT CARE AT 1900. PT AWAKE, ALERT AND ORIENTED. MEDS GIVEN AND WELL TOLERATED. SLEEPING WELL OVERNIGHT. HOURLY ROUNDING DONE. CALL LIGHT IN REACH. WILL CONTINUE TO MONITOR.
[2019-11-25 04:44] LABS: HEMOGLOBIN 8.8 gm/dL (14.0-18.0); MCH 24.4 pg (26.0-34.0); MCHC 31.5 g/dL (28.0-37.0); MCV 77.2 fL (80.0-100.0); PLATELET COUNT 136 thou/uL (150-400); RBC 3.62 mil/uL (4.50-6.00); RDW 24.2 % (10.5-14.5); WBC 3.3 thou/uL (4.0-11.0)
[2019-11-25 04:49] LABS: CREATININE 0.6 mg/dL (0.7-1.3); MAGNESIUM 1.7 mg/dL (1.8-2.4); POTASSIUM 3.9 mmol/L (3.5-5.1)
[2019-11-25 06:31] LABS: ABSOLUTE NEUTROPHILS 1.8 thou/uL (1.4-8.2); ANISOCYTOSIS 3+; PLATELET ESTIMATE DECREASED; POIKILOCYTOSIS 2+
[2019-11-25 06:32] LABS: HYPOCHROMASIA 1+; MICROCYTES 2+
[2019-11-25 08:00] VITALS: BP 126/87
--- NOTE | 2019-11-25 14:58 | NUR ---
SW reviewed chart. Rehab team conference to be held on Thursday afternoon. Plan is for pt to discharge home with [facility] and wheelchair through [facility]. Case mgmt is following to assist as needed with discharge planning.
[2019-11-25 20:00] VITALS: BP 137/77
--- NOTE | 2019-11-25 20:04 | NUR ---
ASSUMED CARE OF PT AT 0700. PT IS A&OX4 AND VITAL SIGNS ARE STABLE. DENIES PAIN AND PARTICIPATED IN SCHEDULED THERAPIES. CONCERNS WITH CONDOM CATHETER THIS SHIFT, WHICH WAS REMOVED IN AFTERNOON AND PT WAS INSTRUCTED TO CALL STAFF TO USE RESTROOM AND BRIEF PLACED WHEN OUT OF BED. FALL PRECAUTIONS IN PLACE AND NURSING WILL CONTINUE TO MONITOR.
--- NOTE | 2019-11-26 01:58 | NUR ---
TURNED TO SIDE, PENIS WASHED OF GLUE FROM PREVIOUS APPLICATION OF CONDOM CATHETER AND PATIENT ABLE TO USE URINAL FOR 350 CC VALERY URINE. PHONE AVAILABLE FOR PATIENT TO TALK TO SON AT MIDNIGHT. MOISTURE BARRIER TO REDDENED BUTTOCK AREA. TAKING SIPS OF COFFEE AND NOW WATER WITH PROVALE CUP
[2019-11-26 07:30] VITALS: BP 153/88
--- NOTE | 2019-11-26 16:33 | NUR ---
ASSUMED CARE OF PT AT 0700. PT IS A&OX4 AND VITAL SIGNS ARE STABLE. PT REPORTS PAIN TO HIS LEFT SHOULDER, MANAGED WITH ORDERED PAIN PATCHES AND PO MEDICATIONS. PARTICIPATED IN SCHEDULED THERAPIES. ACCU CHECKS ACHS AND MANAGED WITH PO MEDICAITONS PER ORDERS. FALL PRECAUTIONS IN PLACE AND NURSING WILL CONTINUE TO MONITOR.
[2019-11-26 19:08] VITALS: BP 119/71
--- NOTE | 2019-11-27 02:30 | NUR ---
TURNED SIDE TO SIDE WITH ASSIST NEEDED DUE TO STIFF, PAINFUL SHOULDERS. APPRECIATES EXTERNAL MALE CATHETER TO DD. SIPS OF WATER WITH PROVALE CUP. TALKING TO SON ON THE PHONE AT O100
[2019-11-27 04:47] LABS: HEMATOCRIT 28.1 % (42.0-52.0); HEMOGLOBIN 8.7 gm/dL (14.0-18.0); MCH 23.8 pg (26.0-34.0); MCHC 30.7 g/dL (28.0-37.0); MCV 77.4 fL (80.0-100.0); RBC 3.64 mil/uL (4.50-6.00); RDW 24.5 % (10.5-14.5); WBC 3.4 thou/uL (4.0-11.0)
[2019-11-27 04:57] LABS: CALCIUM 8.3 mg/dL (8.5-10.1); CREATININE 0.7 mg/dL (0.7-1.3); MAGNESIUM 1.8 mg/dL (1.8-2.4); POTASSIUM 3.8 mmol/L (3.5-5.1)
[2019-11-27 05:37] LABS: GLYCOHEMOGLOBIN (HGB A1C) 5.2 % (4.8-5.6)
[2019-11-27 07:30] VITALS: BP 163/84
--- NOTE | 2019-11-27 10:04 | NUR ---
ASSUMED CARE OF PT AT 0715. PT IS A&OX3. IS ON ROOM AIR. IS STABLE. REPORTS PAIN IN LEFT WRIST THAT RADIATES UP ARM THROUGH SHOLDERS TO RIGHT ARM & BACK. PAIN BEING MANAGED WITH THERAPUETIC TECHNIQUES, ORAL & TRANSDERMAL MEDS. IS UP WITH 2 ASSIST, GB, STAND PIVOT. FALL PRECAUTIONS & HOURLY ROUNDING CONTINUED THIS SHIFT. IS REPOSISTIONED Q2H. LABS & VITALS REVIEWED. CONDOM CATH IN PLACE. PT IS CURRENTLY SLEEPING. BED ALARM ON. CALL LIGHT WITHIN REACH. WILL CONTINUE TO MONITOR.
[2019-11-27 19:59] VITALS: BP 108/62
[2019-11-28 02:06] LABS: GLYCOHEMOGLOBIN (HGB A1C) 5.2 % (4.8-5.6)
--- NOTE | 2019-11-28 03:47 | NUR ---
PATIENT ALERT AND ORIENTED X4. COOPERATIVE WITH CARE. VOIDING LIGHT VALERY URINE PER [place] CATHETER TO OSMAN BAG. MEDICATED FOR PAIN X1 AT TIME OF NOTE ALONG WITH ALPRAZOLAM WHICH ALLOWED PATIENT TO SLEEP. 2LNC AT NIGHT IS IN PLACE, NO SOA NOTED. WILL MONITOR.
--- NOTE | 2019-11-28 10:06 | NUR ---
pt not answering phone in room, cm spoke with his bedside nurse to see if she could get contact number for his son, this number was provided for son zoë [phone], cm called and number just rings, no one picks up and no way to leave a message. will cont following as needed for dc needs.
[2019-11-28 10:12] VITALS: BP 102/55
--- NOTE | 2019-11-28 10:13 | NUR ---
rx for wheel chair sent to [facility] for dme needs when dc from acute rehab. will cont following as needed for dc needs.
--- NOTE | 2019-11-28 10:38 | NUR ---
ASSUMED CARE OF PT AT 0700. REPORTS DIDN'T SLEEP WELL LAST NIGHT. NOTIFIED BRETT AND OBTAINED PRN MELATONIN. PT IS A&OX4, ABLE TO VOICE HIS NEEDS. VITAL SIGNS ARE STABLE ON RA DURING DAY. PT REPORTS PAIN TO HIS LEFT SHOULDER, RATED PAIN 7/10 MANAGED WITH ORDERED PAIN PATCHES AND PO TRAMADOL PRN GIVEN. PAIN DOWN TO 3/10 NOW. HIS GOAL IS TO PARTICIPATE IN SCHEDULED THERAPIES. OT GOT PT UP TO BATHROOM FOR BATH. UP WITH MOD ASSIST WITH A WALKER. BS 102, HGB A1C 5.2 YESTERDAY. NOT ON HYPERGLYCEMIA AT THIS MOMENT. OFFERED SUPPORTIVE CARE. ENCOURAGED PT TO VOICE HIS NEEDS. REASSESSMENT PER CHART. HAD XLARGE FORMED BM TODAY. PT HAS HX OF CONSTIPATION. CONTINUE TO BE ON MIRALAX AND KRISTOFER MEDS DAILY. ENCOURAGED PT TO CONTINUE TO TAKE LAXATIVES AND LET NURSE KNOW IF HE HAS LOOSE STOOLS. FALL PRECAUTIONS IN PLACE, CALL LIGHT WITHIN REACH. TALKING WITH HIS SON ON HIS FREE TIME. NURSING WILL CONTINUE TO MONITOR.
[2019-11-28 20:15] VITALS: BP 113/60
[2019-11-28 22:00] VITALS: BP 118/67
--- NOTE | 2019-11-29 06:29 | NUR ---
PT ASSESSMENT COMPLETED AND VSS. MEDS GIVEN ORDERED AND WELL TOLERATED. FALL PRECAUTIONS IN PLACE. VOIDING MODERATE AMOUNT OF YELLOW URINE PER URINAL. ASST WITH REPOSITION FOR COMFORT. PRN PAIN MEDICATION HELPFUL FOR BACK AND ARM PAIN. SLEEPING MEDICATION WORKING WELL. WILL CONTINUE TO MONITOR FREQUENTLY.
[2019-11-29 07:30] VITALS: BP 109/65
--- NOTE | 2019-11-29 11:07 | NUR ---
ASSUMED CARE OF PT AT 0700. REPORTS SLEEP WELL LAST NIGHT WITH MELATONIN. NIGHT NURSE HAS BEEN OFFER TOILETING DURING ROUND AND PT WAS ABLE TO URINAL 4X AND ONE INCONT BLADDER ONE TIME. PT IS A&OX4, ABLE TO VOICE HIS NEEDS. VITAL SIGNS ARE STABLE ON RA DURING DAY. PT HAS CHRONIC PAIN TO HIS LEFT SHOULDER, BACK AND LEGS PATCHES AND PO PAIN PRN GIVEN. OFFERED SUPPORTIVE CARE. ENCOURAGED PT TO VOICE HIS NEEDS. REASSESSMENT PER CHART. CONTINUE TO BE ON MIRALAX AND KRISTOFER MEDS DAILY. PT HAS BEEN UP AND PARTICIPATES WELL WITH THERPY. FALL PRECAUTIONS IN PLACE, CALL LIGHT WITHIN REACH. NURSING WILL CONTINUE TO MONITOR.
--- NOTE | 2019-11-29 13:21 | NUR ---
team meeting, recommendations: dc 14th, wheel chair from [facility] brought yesterday is the wrong wheel chair. yvon ruth ( pt, ot, st, nursing and sw). son thor to assist with pills and bills. will need assistance with transfers. team trying to reach son as well. cm has not been able to reach pt son thor. will cont following as needed for dc needs. diet upgraded to regular.
[2019-11-29 19:42] VITALS: BP 100/57
--- NOTE | 2019-11-30 00:12 | NUR ---
PT ALERT AND ORIENTED X 4, FORGETFUL. 02 ON AT 2L PER NC DURING THE NIGHT. PT C/O PAIN IN HIS BACK AND ARMS. TRAMADOL GIVEN AT HS. MELATONIN ALSO GIVEN AT HS. BED ALARM ON FOR SAFETY. PT APPEARS TO BE SLEEPING AT INTERVALS. PT CHECKED ON HOURLY ROUNDS.
[2019-11-30 08:00] VITALS: BP 153/76
[2019-11-30 08:54] VITALS: BP 153/76
--- NOTE | 2019-11-30 10:50 | NUR ---
AMAURY reviewed chart. Discharge home with Ke[facility] is anticipated for 12/05. AMAURY dicussed with physical therapy to clarify size of w/c. Pt will need an 18" standard w/c with standard swing away leg rest. AMAURY provided this info and height/weight to [facility] liaison. Pt's current w/c will be picked up. KANDY/AMAURY to follow up with [facility] on Thursday, 12/04 to confirm order for DME. AMAURY updated intake at . Following to assist as needed with discharge planning.
--- NOTE | 2019-11-30 14:25 | NUR ---
ASSUMED CARE OF PT AT 0700. REPORTS SLEEP WELL LAST NIGHT WITH MELATONIN. PT IS A&OX4, ABLE TO VOICE HIS NEEDS. PT HAS CHRONIC PAIN TO HIS LEFT SHOULDER, BACK AND LEGS PATCHES AND TRAMADOL PRN GIVEN PER REQUESTS. OFFERED SUPPORTIVE CARE. ENCOURAGED PT TO VOICE HIS NEEDS. REASSESSMENT PER CHART. CONTINUE TO BE ON MIRALAX AND KRISTOFER MEDS DAILY. MORNING MEDS GIVEN ONE AT THE TIME OR COUPLE WITH APPLE SAUCE. PT C/O INCONT BLADDER. PT IS ON FLOMAX. B/P LOW AT TIME. PT REFUSES FLOMAX TODAY. NOTIFIED BRETT AND SHE CHANGE TO HS TO PREVENT B/P. HAS 2+ EDEMA BLE. NESS HOSE APPLIED. NEW LASIX ORDER NOTED. WILL CONTINUE TO MONITOR. PT HAS BEEN UP AND PARTICIPATES WELL WITH THERPY. FALL PRECAUTIONS IN PLACE, RESTING IN BED AT THIS MOMENT. CALL LIGHT WITHIN REACH. NURSING WILL CONTINUE TO MONITOR.
[2019-11-30 19:25] VITALS: BP 109/68
--- NOTE | 2019-12-01 01:15 | NUR ---
TURNED AND OFFERED URINAL Q 2 HOURS, ONLY INCONTINENT ONCE SO FAR TONIGHT, PATIENT SURPRISED THAT HE WAS ABLE TO GO ANOTHER 150 CC AT THAT POINT. NESS HOSE OFF AND O2 2L PNC ON AT HS. PHONE WITHIN REACH FOR HIS USUAL MIDNIGHT CALL TO SON, BUT WENT RIGHT BACK TO SLEEP AFTER WE NOTED THAT IT WAS WITHIN HIS REACH
[2019-12-01 08:00] VITALS: BP 154/88
--- NOTE | 2019-12-01 09:14 | NUR ---
Assess due to length of stay. Admit to rehab unit for parkinsons, lumbar and cervical radiculopathy. Hx dm. Eating 100% of meals, modified per ST recs. No wt changes. BG under excellent control. Low nutrition risk
--- NOTE | 2019-12-01 10:04 | NUR ---
wilfredo spoke with liaison with [facility] called to see if the wheel chair was picked up by [facility] yesterday, wilfredo spoke with therapy and team, [facility] wrong wheel chair was picked yesterday the unite supervisor metal hanging took wheel chair down to the [facility] delivery merchandiser. per [facility] the 18" wc is on back order so they are trying to see if can get one in before pt dc home if not [facility] will get pt bigger size wheel chair and then swap out the wheel chairs when 18" come in. cm passed on information to physical therapy. will cont following as needed for dc needs.
--- NOTE | 2019-12-01 18:17 | NUR ---
ASSUMED CARE OF PT AT 0700. PT IS A&OX4 AND VITAL SIGNS ARE STABLE. PT REPORTS PAIN IN LEFT SHOULDER, MANAGED WITH PO PAIN MEDICATIONS AND LIDOCAINE PATCH PER ORDERS, PARTICIPATED IN SCHEUDLED THERAPIES. REFUSED NESS HOSE THIS SHIFT, EDUCATION PROVIDED ABOUT NESS HOSE ORDERS, CONTINUES TO REFUSE NESS HOSE. ACCU CHECKS DAILY, RESULTS WNL. INCONTINENT OF BLADDER MULIPLE TIMES DURING SHIFT. DISCUSSED TOILETING SCHEDULE. FALL PRECAUTIONS IN PLACE, NURSING WILL CONTINUE TO MONITOR.
[2019-12-01 19:52] VITALS: BP 130/77
--- NOTE | 2019-12-01 23:39 | NUR ---
ASSUMED CARE OF PT AT 0715. PT IS A&OX3. IS ON ROOM AIR. IS STABLE. REPORTS PAIN IN LEFT ARM & BACK THAT IS BEING MANAGED WITH ORAL & TOPICAL MEDS & OTHER THERAPUETIC TECHNIQUES. PT IS INCONT TO BLADDER. OFFERING URINAL Q2H. IS TURNED Q2H. IS UP WITH 1 ASSIST, GB, STAND PIVOT FROM BED TO CHAIR & CHAIR TO BED. FALL PRECAUTIONS & HOURLY ROUNDING CONTINUED THIS SHIFT. LABS & VITALS REIVEWED. WILL CONTINUE TO MONITOR.
[2019-12-02 08:00] VITALS: BP 145/83
--- NOTE | 2019-12-02 12:34 | H ---
[facility] [place] [address] HISTORY AND PHYSICAL Name: FERDINAND WALSH Room #: 511-P ADM IN M.R.#: [id number] Admission: 11/21/19 Attend Phys: Bobo Joaquin MD Discharge: Date of : 37 Report #: [id number] THIS REPORT FOR: cc: BEKAH - Michelle family physician/PCP BEKAH - No family physician/PCP Bobo Joaquin MD ~ CC: Bobo GODFREY physician/PCP DATE OF SERVICE: 11/21/2019 HISTORY AND PHYSICAL/POSTADMISSION PHYSICIAN EVALUATION HISTORY OF PRESENT ILLNESS: The patient is an 84-year-old white male, previously known to me who has been admitted now for acute in-hospital inpatient rehabilitation. Please see my prior consult note dictation. The patient was originally admitted on 11/11/2019 with a history of Parkinson's disease and noted to have near syncope. He had a fall approximately 2 weeks prior to his acute hospitalization with noted increased weakness. He was noted to have dizziness, thought to be related to polypharmacy as well as progression of his Parkinson's disease. He was noted to have a burst of SVT. Cardiology was involved. He had an elevated troponin. He also was noted to have severe constipation. GI had recommended upper and lower endoscopy, although they note that it was currently on hold with the current COVID-19 crisis and trying to postpone any elective procedures. He was seen by speech therapy, placed on mechanical soft nectar thickened liquid diet initially, this has since been advanced to mechanical soft with all liquids. He was noted to have a significant decline with his overall functional independence and has been admitted now for acute in-hospital inpatient rehabilitation. PAST MEDICAL HISTORY: Parkinson's disease, history of non-insulin dependent diabetes mellitus, hypertension, controlled GERD, sleep apnea, anxiety, skin cancer, history of atrial fibrillation with ablation, BPH, and chronic back pain. PAST SURGICAL HISTORY: Includes bilateral total knee replacements, left hip replacement, ORIF, bilateral inguinal hernia repair, and T and A. MEDICATIONS: Please see the full medication listing. ALLERGIES: IODINE. SOCIAL HISTORY: He had been living with his son who has cerebral palsy and Tourette's. The patient has a lift chair at home and then the son does give him a little assist to get into the wheelchair. Apparently, he is having another wheelchair ordered for him other than his 's wheelchair that he was [facility] [address] [place] [address] HISTORY AND PHYSICAL Name: FERDINAND WALSH Room #: 511-P [facility] IN .R.#: [id number] Admission: 11/21/19 Attend Phys: Bobo Joaquin MD Discharge: Date of : 36 Report #: [id number] utilizing after she passed. REVIEW OF SYSTEMS: Denied any current chest pain, shortness of breath, and abdominal discomfort. He has got a history of chronic back pain and neck pain and is noted to have lumbar and cervical radiculopathy. He also has peripheral neuropathy. These are not new conditions. He has history of urinary incontinence, utilized adult depends or adult diapers at home. PHYSICAL EXAMINATION: GENERAL: He is a pleasant 84-year-old male in no obvious distress. VITAL SIGNS: Last recorded temperature 97.4, pulse 78, respirations 22, and blood pressure 154/84. NEUROLOGIC: He is alert, oriented. He does have some evidence of masked facies. Follows basic 1 step commands. CHEST: Some decreased breath sounds diffusely, but otherwise sounds clear. CARDIAC: Sounds regular rate and rhythm. ABDOMEN: Bowel sounds positive, nontender. GENITOURINARY AND RECTAL: He has the indwelling Patterson catheter. EXTREMITIES: Upper extremities, decreased range of motion at end range. He does have some cogwheeling, wrists and hands and has a resting tremor of that left distal upper extremity. Lower extremity has some rigidity. Strength is probably a grade 3+/5. DTRs are trace to 1. No focal calf swelling. Functionally, he has been needing assist with basic transfers at a max assist and is taking 2-3 steps with a front-wheeled walker max assist. ASSESSMENT: An 84-year-old male with the following problem list: 1. Parkinson's disease. 2. Lumbar radiculopathy. 3. Cervical radiculopathy. 4. Dysphagia, which has improved. 5. Severe constipation secondary to chronic opiate use. 6. Chronic pain disorder. 7. Peripheral neuropathy. 8. Anemia. 9. Diabetes mellitus. 10. History of dizziness with near syncopal episode, question supraventricular tachycardia. PLAN: The patient has been admitted for acute in-hospital inpatient rehabilitation. From a postadmission physician evaluation perspective, there are no relevant changes since the preadmission screening. Please see the above review of prior and current medical and functional conditions and comorbidities. Please see the patient's previous and current functional status. As far as risk of complications, the patient has multiple medical comorbidities as noted above. The initial plan of care involves the interdisciplinary acute inpatient rehabilitation program. [address] [address] HISTORY AND PHYSICAL Name: FERDINAND WALSH Room #: 511-P ADM IN M.R.#: [id number] Admission: 11/21/19 Attend Phys: Bobo Joaquin MD Discharge: Date of : 36 Report #: [id number] functional goals would be for the patient to improve as far as basic transfers and ADLs to the point where he can be handled by his son and can get him back to the home setting. Prognosis is reasonably good with estimated length of stay probably at least 7-14 days pending progress. We will need to see how he progresses. Potential barriers would include his multiple medical comorbidities and decreased functional status. <ELECTRONICALLY SIGNED> By: Bobo Joaquin MD 12/02/19 1234 [id number] 1503 Bobo Joaquin MD /[facility] [place]
--- NOTE | 2019-12-02 12:34 | PLAN ---
[facility] [place] [address] REHAB UNIT PLAN OF CARE Name: FERDINAND WALSH Room #: 511-P ADM IN M.R.#: [id number] Admission: 11/21/19 Attend Phys: Bobo Joaquin MD Discharge: Date of : 36 Report #: [id number] THIS REPORT FOR: //name// CC: Bobo Joaquin [facility] physician/PCP DATE OF SERVICE: 11/23/2019 PROGRESS NOTE/OVERALL PLAN OF CARE SUBJECTIVE: The patient is an 84-year-old male who is in no distress. The patient is seen back today in followup. He looks brighter than it was yesterday. He had a dose of Xanax that has been significantly decreased. No documentation of receiving any Xanax yesterday. He is more alert today working on swallowing issues. Transfers have been max assist with gait up to 65 feet front-wheeled walker, min assist. In occupational therapy, lower body dressing is dependent, upper body dressing is max assist. In speech therapy, he is now on nectar thickened liquid diet. Consideration for a video swallow underway. ASSESSMENT: 1. Parkinson's disease. 2. Lumbar radiculopathy. 3. Cervical radiculopathy. 4. Dysphagia. 5. Severe constipation previously secondary to chronic opiate use. 6. Chronic pain disorder. 7. Peripheral neuropathy. 8. Anemia. 9. Diabetes mellitus. 10. Prior history of dizziness with near syncopal episode, question SVT. PLAN: The overall plan of care is based on the preadmission screen, post-admission physician evaluation and information garnered from therapy assessments. 1. Estimated length of stay at this point is through Thursday12/06/2019 as per team conference yesterday. 2. Medical prognosis is reasonably good. 3. Anticipated interventions include the interdisciplinary acute inpatient rehabilitation program. 4. Anticipated functional outcomes would be for the patient to improve as far as basic transfers and mobility as well as ADLs, so that his son can hopefully care for him. Also to improve as far as his swallowing issues. Hopefully, he can get off the thickened liquids. 5. Discharge destination would be back home with son. 6. Expected therapy by discipline includes PT, OT and speech 1 hour per day [address] [address] REHAB UNIT PLAN OF CARE Name: FERDINAND WALSH Room #: 511-P ADM IN [facility]#: [id number] Admission: 11/21/19 Attend Phys: Bobo Joaquin MD Discharge: Date of : 36 Report #: [id number] each five days a week throughout the duration of the acute inpatient rehabilitation stay. <ELECTRONICALLY SIGNED> By: Bobo Joaquin MD 12/02/19 1234 0856 [id number] Bobo Joaquin MD /PMT
[2019-12-02 19:35] VITALS: BP 142/79
--- NOTE | 2019-12-02 19:55 | NUR ---
ASSUMED CARE OF PT AT 0700. PT IS A&OX4 AND VITAL SIGNS ARE STABLE. PT REFUSED NESS FLORESE THIS SHIFT. REPORTS PAIN WHICH WAS MANAGED WTIH PO MEDICATIONS AND LIDOCAINE PATCH PER ORDERS, PARTICIPATED IN SCHEDULED THERAPIES. FALL PRECAUTIONS IN PLACE AND NURSING WILL CONTINUE TO MONITOR.
--- NOTE | 2019-12-03 03:56 | NUR ---
assumed care at approx 1900 evening 12/01. pt sitting up in w/c at change of shift and most of night. pt did not want to lie down until approx 0200 requesting to stay up in w/c. pt voiding per urinal with standby assist. pt took hs meds with water tolerating well. pt now in bed appears to be sleeping soundly. bed alarm on and call light in reach. will continue to monitor.
[2019-12-03 08:00] VITALS: BP 146/86
--- NOTE | 2019-12-03 18:03 | NUR ---
ASSUMED CARE OF PT AT 0700. PT IS A&OX4 AND VITAL SIGNS ARE STABLE. PT REPORTS PAIN IN ARMS, BACK, SHOULDERS AND LEGS, MANAGED WITH PO PAIN MEDICATIONS, PARTICIAPTED IN SCHEDULED THERAPIES. FALL PRECAUTIONS IN PLACE, NURSING WILL CONTINUE TO MONITOR.
[2019-12-03 19:20] VITALS: BP 108/53
--- NOTE | 2019-12-04 00:39 | NUR ---
PT ALERT AND ORIENTED X 4. UP IN W/C THIS EVENING. PT C/O PAIN IN LEFT SHOULDER AND BACK. TRAMADOL GIVEN ORDERED. CHAIR ALARM ON FOR SAFETY. PT CHECKED ON HOURLY ROUNDS.
[2019-12-04 06:54] LABS: HEMATOCRIT 28.9 % (42.0-52.0); HEMOGLOBIN 8.9 gm/dL (14.0-18.0); MCH 23.5 pg (26.0-34.0); MCHC 30.7 g/dL (28.0-37.0); MCV 76.7 fL (80.0-100.0); PLATELET COUNT 161 thou/uL (150-400); RBC 3.77 mil/uL (4.50-6.00); RDW 23.3 % (10.5-14.5); WBC 3.6 thou/uL (4.0-11.0)
[2019-12-04 07:09] LABS: ALBUMIN 3.4 g/dL (3.4-5.0); CREATININE 0.7 mg/dL (0.7-1.3); MAGNESIUM 1.9 mg/dL (1.8-2.4); PHOSPHORUS 3.7 mg/dL (2.5-4.9); POTASSIUM 3.9 mmol/L (3.5-5.1); TOTAL BILIRUBIN 0.5 mg/dL (<0.1-1.0); TOTAL PROTEIN 6.8 g/dL (6.4-8.2)
[2019-12-04 07:30] VITALS: BP 130/87
[2019-12-04 07:42] LABS: ABSOLUTE NEUTROPHILS 1.9 thou/uL (1.4-8.2); ANISOCYTOSIS 1+; PLATELET ESTIMATE NORMAL
--- NOTE | 2019-12-04 10:32 | NUR ---
ASSUMED CARE AT 0700. PATIENT IS ALERT AND ORIENTED X4,BUT FORGETFUL. PATIENT LEÓN, REGULATOR INSPECTOR ARE EQUAL. LUNGS ARE CLEAR. ABD IS SOFT WITH BSX4. PATIENT IS UP WITH ASSIST OF 2 STAFF WITH GAIT BELT AND WALKER. PATIENT UP IN HALLWAY WITH P.T. WITH GAIT BELT AND WALKER. UP IN BED FOR BREAKFAST. FALL AND SAFETY PROTOCOLS IN PLACE. C/O LEFT SHOULDER PAIN. MEDICATED WITH LIDOCAIN PATCH. CONTINUES TO PROGRESS TOWARDS D/C GOALS. WILL CONTINUE TO MONITER. .
[2019-12-04 19:11] VITALS: BP 106/64
--- NOTE | 2019-12-05 01:49 | NUR ---
assumed care at approx 1900 evening 12/03. pt sitting up in bed at change of shift resting and watching tv. pt alert and oriented x4, appropriate and cooperative. pt using urinal to void. pt took hs meds with water tolerating well. pt appears to be sleeping soundly with hourly rounding checks. bed alarm on and call light in reach. will continue to monitor.
[2019-12-05 08:15] VITALS: BP 123/68
--- NOTE | 2019-12-05 14:15 | NUR ---
ASSUMED CARES AT 0700. PT AWAKE, ALERT AND ORIENTED*4. DENIES PAIN AT THIS TIME. LIDOCAINE PATCH APPLIED TO LEFT SHOULDER PER ORDER. VITALS REMAIN STABLE. PT UP WITH 1 MIN ASSIST, GB AND WALKER AND TOLERATED WELL. Q1H VISUAL CHECKS. CALL LIGHT WITHIN REACH. FALL PRECAUTIONS IN PLACE
--- NOTE | 2019-12-05 15:07 | NUR ---
pt wheel chair with cushion and leg rest delivered today from [facility] for pt dc at home.
[2019-12-05 19:30] VITALS: BP 166/74
--- NOTE | 2019-12-06 01:07 | NUR ---
assumed care at approx 1900 evening 12/04. pt lying in bed at change of shift with head of bed elevated. pt awake and oriented x4, pleasant and cooperative. pt took hs meds with water tolerating well. pt incontinent of urine soaking sheets requiring assistance with complete bed change. pt also using urinal. pt denied need for pain med and refused scheduled Tylenol. pt now back to sleep. bed alarm on and call light in reach. will continue to monitor.
[2019-12-06 08:00] VITALS: BP 155/70
--- NOTE | 2019-12-06 13:32 | NUR ---
team meeting, recommendation: cont transfer safety, adl's, incont care with time voiding at hs and stools. dc 21st with yvon miller ( pt, ot, bath aid, st, nursing and sw). take home [employer] wheel chair with cushion, still needing the correct leg rest.
--- NOTE | 2019-12-06 14:57 | NUR ---
ASSUMED CARES AT 0700. PT AWAKE, ALERT AND ORIENTED *4. C/O DELMI SHOULDER AND BACK PAIN, PAIN MEDICATION ADMINISTERED NEEDED. ALL VITALS REMAIN STABLE. PT UP WITH 1 MIN ASSIST, GB AND WALKER AND TOLERATED WELL. Q1H VISUAL CHECKS. CALL LIGHT WITHIN REACH. FALL PRECAUTIONS IN PLACE
[2019-12-06 18:55] VITALS: BP 154/97
--- NOTE | 2019-12-07 01:15 | NUR ---
PT ALERT AND ORIENTED X 4. PT C/O PAIN IN LEFT SHOULDER. SCHEDULED OXY IR GIVEN AT START OF SHIFT. VERBALIZES SOME RELIEF OF PAIN WITH MEDS. BED ALARM ON FOR SAFETY. PT APPEARS TO BE SLEEPING ON HOURLY ROUNDS.
[2019-12-07 08:03] VITALS: BP 161/83
--- NOTE | 2019-12-07 16:48 | NUR ---
ASSUMED CARE OF PT AT 0700. PT IS A&OX4 AND VITAL SIGNS ARE STABLE. ACCU CHECKS IN AM. REPORTS PAIN IN BACK, MANAGED WITH PO MEDICATIONS AND LIDOCAINE PATCH, PARTICIPATED IN SCHEDULED THERAPIES. FALL PRECAUTIONS IN PLACE AND NURISNG WILL CONTINUE TO MONITOR.
[2019-12-07 19:00] VITALS: BP 139/78
--- NOTE | 2019-12-08 03:22 | NUR ---
APPRECIATES PAIN MED. UP IN WC UNTIL 2329, LARGE BM PLUS 300 CC VOID PER URINAL WHILE ON TOILET. ABLE TO TRANSFER WITH ASSIST OF ONE WITH A LITTLE BIT OF HELP PULLING UP HIS BRIEF THAT HE PREFERS TO WEAR ALTHOUGH HE HAS BEEN CONTINENT SO FAR TONIGHT. PLEASANT AND ABLE TO SLOWLY THINK THROUGH THE STEPS OF A PIVOT TRANSFER.
[2019-12-08 08:00] VITALS: BP 140/39
--- NOTE | 2019-12-08 11:21 | NUR ---
Nutrition followup: Pt continues on rehab unit for parkinsons, lumbar and cervical radiculopathy. Eating 100% of meals and followed by ST. No weight since 11/23 but prior weights stable. Continued excellent BG control. Pt requesting regular diet rather than Heart healthy. Noted PMH of HTN, afib which was discussed with pt. Encouraged him to request diet liberalization of provider if desired. Plan D/C next week. Low nutrition risk.
--- NOTE | 2019-12-08 20:09 | NUR ---
ASSUMED CARE OF PT AT 0700. PT IS A&OX4 AND VITAL SIGNS ARE STABLE. PT REPORTS SHOULDER PAIN, MANAGED WITH PO MEDICAITONS AND LIDOCAINE PATCH PER ORDERS. PARTICIPATED IN SCHEDULED THERAPIES. CALLS APPROPRIATELY FOR ASSISTANCE. FALL PRECAUTIONS IN PLACE AND NURSING WILL CONTINUE TO MONITOR.
[2019-12-08 21:00] VITALS: BP 147/69
--- NOTE | 2019-12-09 03:40 | NUR ---
WANTING TO GET UP ALONE, ENCOURAGED TO CALL FOR ASSIST AND REMINDED THAT HE IS NOT QUITE STEADY ENOUGH TO BE SAFE BY HIMSELF AND THAT WE DO NOT MIND GUIDING HIM IN ANY WAY. INSISTS ON WEARING BRIEF AT NIGHT, DID VOID LARGE AMOUNT IN TOILET BEFORE WE CHANGED HIS MOIST BRIEF AND HELPED HIM PIVOT FROM WHEELCHAIR TO BED WITH GAIT BELT, WALKER, AND CONTACT GUARD ASSIST.
[2019-12-09 08:10] VITALS: BP 138/82
[2019-12-09 19:23] VITALS: BP 146/68
--- NOTE | 2019-12-09 20:03 | NUR ---
ASSUMED CARE OF PT AT 0700. PT IS A&OX4 AND VITAL SIGNS ARE STABLE. PT REPORTS SHOULDER AND BACK PAIN, MANAGED WITH PO MEDICAITONS AND LIDOCAINE PATCH. PT PARTICIPATED IN SCHEDULED THERAPIES. CALLS APPROPRIATELY FOR ASSISTANCE, FALL PRECAUTIONS IN PLACE AND NURSING WILL CONTINUE TO MONITOR.
--- NOTE | 2019-12-10 05:19 | NUR ---
ASSUMED PT CARE AROUND 1930. AXOX3. VSS. NO S/S ACUTE DISTRESS NOTED OR REPORTED AT THIS TIME. WILL CONT TO MONITOR FOR ANY CHANGES IN CONDITION.
[2019-12-10 08:00] VITALS: BP 141/79
--- NOTE | 2019-12-10 13:53 | NUR ---
ASSUMED CARES AT 0700. PT VERY SLEEPY THIS AM, ORIENTED*4. LS COARSE, PT HAD A PRODUCTIVE COUGH, O2 SATS STABLE. VITALS STABLE. C/O DELMI SHOULDER PAIN, PAIN MEDICATION ADMINISTERED NEEDED. PT WAS INCONTINENT OF URINE THIS AM, CLEANED AND BEDDINGS CHANGED. PT VERBALISED CONCERNS ABOUT HIS SON, WORRIED THAT HE (THE SON) ISN'T DOING WELL ALONE. UP WITH 1 MIN -MOD ASSIST, GB AND WALKER AND TOLERATED WELL. Q1H VISUAL CHECKS. CALL LIGHT WITHIN REACH. FALL PRECAUTIONS IN PLACE
[2019-12-10 20:01] VITALS: BP 147/81
--- NOTE | 2019-12-11 02:22 | NUR ---
ASSUMED CARE OF PT AT 1915. PT IS A&OX4. IS ON ROOM AIR. IS STABLE. IS UP WITH 1 ASSIST, GB, WALKER. FALL PRECAUTIONS & HOURLY ROUNDING MAINTAINED. REPORTS PAIN IN ARMS & BACK THAT IS BEING MANAGED WITH PAIN MEDS & OTHER THERAPUETIC TECHNIQUES. LABS & VITALS REVIEWED. PT IS CURRENTLY SLEEPING IN BED. CALL LIGHT WITHIN REACH. WILL CONTINTUE TO MONITOR.
[2019-12-11 07:14] VITALS: BP 141/75
--- NOTE | 2019-12-11 17:10 | NUR ---
ASSUMED CARE AT 0700, PT A&O X 4, NO ACUTE DISTRESS DURING SHIFT. VSS O2 ON RA. PT C/O BILATERAL SHOULDER PAIN RELIEVED WITH MINNIE OXY IR. TOLERATES MEDS WHOLE WITH WATER. INCONTINENT AT TIMES, USES URINAL. BM YESTERDAY, REFUSED MIRALAX AND SENNA. RESTING IN BED, CALL LIGHT WITHIN REACH, WILL CONTINUE TO MONITOR PER POC.
[2019-12-11 18:55] VITALS: BP 179/88
--- NOTE | 2019-12-12 04:29 | NUR ---
ASSUMED CARE AT APPROX 1900 EVENING 12/10. PT SITTING UP IN BED AT CHANGE OF SHIFT RESTING AND WATCHING TV. PT ALERT AND ORIENTED X4, PLEASANT AND COOPERATIVE. PT USING URINAL AND ALSO INCONTINENT OF URINE AT TIMES. PT TOOK HS MEDS WITH WATER TOLERATING WELL. PT APPEARS TO BE SLEEPING SOUNDLY OFF AND ON. WILL CONTINUE MONITORING. BED ALARM ON AND CALL LIGHT IN REACH.
[2019-12-12 04:59] VITALS: BP 155/88
--- NOTE | 2019-12-12 05:01 | NUR ---
PT C/O TROUBLE BREATHING AND COUGHING UP LOOSE PHLEGM. PT CONGESTED AND COUGHING, SPITTING UP THIN PHLEGM. VSS. REPOSITIONED PT IN BED SITTING UP WITH EMESIS BASIN. SALES SUPPORT TECHNICIAN PAGED AND ORDERS TO BE PUT IN COMPUTER FOR RESP TX AND NAUSEA MED PRN. PT WITH LESS COMPLAINTS REGARDING BREATHING AND NAUSEA. WILL CONTINUE TO MONITOR.
[2019-12-12 07:30] VITALS: BP 117/72
--- NOTE | 2019-12-12 19:50 | NUR ---
ASSUMED CARE AT 0700, PT A&O X 4, NO ACUTE DISTRESS DURING SHIFT. VSS O2 ON RA WITH Q4H RESP TX. ON [facility] TYLENOL FOR BILATERAL SHOULDER PAIN. PT HAD CXR FOR PAIN TO LOWER CHEST AREA, MON CONSTIPATION NOTED, GIVEN [facility] THIS AFTERNOON. BLE EDEMA NOTED, LEGS ELEVATED WHILE IN BED. PT PARTICIPATED IN [facility] THERAPTES, TOLERATES MEDS WHOLE WITH WATER. PT NOW DAILY WEIGHT. RESTING IN BED, CALL LIGHT WITHIN REACH, WILL CONTINUE TO MONITOR PER POC.
[2019-12-12 19:54] VITALS: BP 140/83
--- NOTE | 2019-12-13 00:39 | NUR ---
PT ASSESSMENT COMPLETED AND VSS. MEDS GIVEN ORDERED AND WELL TOLERATED. FALL PRECAUTIONS IN PLACE. VERY LARGE SOFT BROWN STOOL AT HS. ASST WITH REPOSITION FOR COMFORT. RT TREATMENTS CONTINUE. SAT WNL ON RA. DENIES NEEDS. SLEEPING WELL. WILL CONTINUE TO MONITOR FREQUENTLY.
[2019-12-13 06:41] LABS: HEMATOCRIT 29.1 % (42.0-52.0); MCH 23.7 pg (26.0-34.0); MCHC 30.8 g/dL (28.0-37.0); PLATELET COUNT 105 thou/uL (150-400); RBC 3.78 mil/uL (4.50-6.00); RDW 23.9 % (10.5-14.5)
[2019-12-13 06:56] LABS: CALCIUM 8.4 mg/dL (8.5-10.1); CREATININE 0.7 mg/dL (0.7-1.3); MAGNESIUM 2.2 mg/dL (1.8-2.4); POTASSIUM 3.7 mmol/L (3.5-5.1)
[2019-12-13 07:54] LABS: ABSOLUTE NEUTROPHILS 1.6 thou/uL (1.4-8.2); ANISOCYTOSIS 2+; HYPOCHROMASIA 2+; PLATELET ESTIMATE NORMAL
[2019-12-13 07:55] LABS: MICROCYTES 2+
[2019-12-13 08:10] VITALS: BP 137/63
[2019-12-13 08:41] VITALS: BP 152/92
[2019-12-13] MEDS ORDERED: MAGNESIUM400 MG PO (08:48)
[2019-12-13] MEDS ORDERED: LISINOPRIL2.5 MG PO (08:48)
[2019-12-13] MEDS ORDERED: MIRALAX17 GM PO (08:48)
[2019-12-13] MEDS ORDERED: SENNA-TIME S T1 EACH PO (08:48)
[2019-12-13] MEDS ORDERED: SINEMET 25-2501 EAC1 PO (08:48)
[2019-12-13] MEDS ORDERED: KLOR-CON 1010 MEQ PO (08:48)
[2019-12-13] MEDS ORDERED: NEURONTIN 300M300 M2 PO (08:48)
[2019-12-13] MEDS ORDERED: TYLENOL EXTRA500 MG PO (08:48)
[2019-12-13] MEDS ORDERED: VITAMIN D325 MCG PO (08:48)
--- NOTE | 2019-12-13 10:25 | NUR ---
cm provided bedside nurse with senior blue book for pt to take home today for resources outside of hospital. pt will required wheel chair transport home. pt has his wheel chair from [facility] already there. yvon ruth. discussed transport time pt will be ready between 2-3pm.
[2019-12-13 11:07] VITALS: BP 152/92
--- NOTE | 2019-12-13 11:26 | NUR ---
PT DISCHARGING TODAY TO HOME WITH [facility] FAXED DC ORDERS/SUMMARY SPOKE WITH GINGER IN INTAKE SHE RECEIVED ORDERS AND WILL NOTIFY PT TIME OF VISITS, PT DOES NOT HAVE TRANSPORTATION HOME HIS SON CANNOT DRIVE SO TRANSPORT ARRANGED WITH [facility] FOR 1530 TODAY. NOTIFIED UNIT OF TIME OF TRANSPORT AND PT'S SON.
[2019-12-13 14:05] VITALS: BP 152/92
--- NOTE | 2019-12-13 14:09 | NUR ---
PLAN D/C TO HOME AT 1530. MEDICAL TRANSPORTATION TO TAKE PATIENT HOME. D/C INSTRUCTIONS REVIEWED WITH PATIENT. SCRIPTS SENT TO [facility]. F/U APPTS WITH DR. LEMUS PCP AND DR. [facility] NEED TO BE SET UP BY PATIENT.
== END 2019-12-13 15:30 | disposition home health service (06) | DRG 57 ==
PROVIDERS: Internal Medicine; Nurse Practitioner; ADMIT Physical Medicine & Rehabilitation
DX: G20 Parkinson's disease (principal); M54.16 Radiculopathy, lumbar region; M54.12 Radiculopathy, cervical region; R13.10 Dysphagia, unspecified; K59.00 Constipation, unspecified; G89.29 Other chronic pain; D64.9 Anemia, unspecified; K21.9 Gastro-esophageal reflux disease without esophagitis; F41.9 Anxiety disorder, unspecified; E11.42 Type 2 diabetes mellitus with diabetic polyneuropathy; I10 Essential (primary) hypertension; I48.91 Unspecified atrial fibrillation; N40.0 Benign prostatic hyperplasia without lower urinary tract symptoms; M54.9 Dorsalgia, unspecified; Z96.653 Presence of artificial knee joint, bilateral; Z96.642 Presence of left artificial hip joint; R53.81 Other malaise; E53.8 Deficiency of other specified B group vitamins; E55.9 Vitamin D deficiency, unspecified; D50.9 Iron deficiency anemia, unspecified; G47.33 Obstructive sleep apnea (adult) (pediatric); R42 Dizziness and giddiness; Z91.041 Radiographic dye allergy status; Z88.6 Allergy status to analgesic agent; Z85.828 Personal history of other malignant neoplasm of skin; Z98.42 Cataract extraction status, left eye; Z98.41 Cataract extraction status, right eye; Z83.3 Family history of diabetes mellitus; Z82.49 Family history of ischemic heart disease and other diseases of the circulatory system
CPT/HCPCS: 10112

== ENCOUNTER 2019-12-27 16:48 | Inpatient (IN) | payer OTHER ==
[~2019-12-27] VITALS: Ht 175.3 cm; Wt 99.8 kg
[~2019-12-27 16:48] MED LIST changes: +LISINOPRIL2.5 MG PO; +NEURONTIN 300M300 M2 PO; +SENNA-TIME S T1 EACH PO; +SINEMET 25-2501 EAC1 PO; +TYLENOL EXTRA500 MG PO; +VITAMIN D325 MCG PO
[2019-12-27 17:03] VITALS: BP 176/94
[2019-12-27 17:06] LABS: ABSOLUTE NEUTROPHILS 2.4 thou/uL (1.4-8.2); BASOPHILS 0.7 % (0.0-2.0); EOSINOPHILS 4.8 % (0.0-3.0); HEMATOCRIT 34.7 % (42.0-52.0); HEMOGLOBIN 10.9 gm/dL (14.0-18.0); LYMPHOCYTES 26.3 % (24.0-44.0); MCH 23.9 pg (26.0-34.0); MCHC 31.4 g/dL (28.0-37.0); MCV 76.2 fL (80.0-100.0); MONOCYTES 9.9 % (1.0-8.0); PLATELET COUNT 166 thou/uL (150-400); POLYS 58.3 % (36.0-66.0); RBC 4.56 mil/uL (4.50-6.00); RDW 23.3 % (10.5-14.5); WBC 4.2 thou/uL (4.0-11.0)
[2019-12-27 17:14] LABS: ANION GAP 5 mmol/L (7-16); BUN 17 mg/dL (7-18); CALCIUM 8.4 mg/dL (8.5-10.1); CHLORIDE 102 mmol/L (98-107); CO2 30 mmol/L (21-32); CREATININE 0.8 mg/dL (0.7-1.3); GLUCOSE 89 mg/dL (74-106); SODIUM 137 mmol/L (136-145)
[2019-12-27 17:24] LABS: ALBUMIN 3.9 g/dL (3.4-5.0); SGOT 17 U/L (15-37); SGPT 10 U/L (30-65); TOTAL BILIRUBIN 0.4 mg/dL (<0.1-1.0); TOTAL PROTEIN 7.3 g/dL (6.4-8.2); TROPONIN-I <0.06 ng/mL (<0.06); URINE BILIRUBIN NEGATIVE (Negative); URINE BLOOD NEGATIVE (Negative); URINE CLARITY CLOUDY; URINE COLOR YELLOW; URINE GLUCOSE-RANDOM* NEGATIVE (Negative); URINE KETONES NEGATIVE (Negative); URINE NITRITE-REFLEX NEGATIVE (Negative); URINE PROTEIN (DIPSTICK) NEGATIVE (Negative); URINE UROBILINOGEN 0.2 E.U./dl (0.2-1.0)
[2019-12-27 17:34] LABS: ANISOCYTOSIS 2+
[2019-12-27 17:35] LABS: HYPOCHROMASIA 1+; OVALOCYTES 1+
[2019-12-27 17:36] LABS: URINE LEUKOCYTES-REFLEX 2+ (Negative)
[2019-12-27 17:41] LABS: SQUAMOUS None Seen /LPF (0-3); URINE RBC None Seen /HPF (0-2); URINE WBC-REFLEX >25 Many /HPF (0-5)
[2019-12-27 17:43] LABS: CRYSTALS None Seen /LPF (None Seen)
[2019-12-27 18:26] VITALS: BP 147/78
[2019-12-27 20:07] VITALS: BP 135/74
[2019-12-27 20:20] VITALS: BP 145/84
[2019-12-28 05:12] VITALS: BP 145/71
[2019-12-28 06:05] LABS: HEMATOCRIT 32.5 % (42.0-52.0); HEMOGLOBIN 10.1 gm/dL (14.0-18.0); MCH 23.6 pg (26.0-34.0); MCHC 31.2 g/dL (28.0-37.0); MCV 75.8 fL (80.0-100.0); PLATELET COUNT 157 thou/uL (150-400); RBC 4.29 mil/uL (4.50-6.00); RDW 22.9 % (10.5-14.5); WBC 3.6 thou/uL (4.0-11.0)
[2019-12-28 06:14] LABS: CALCIUM 8.6 mg/dL (8.5-10.1); CREATININE 0.8 mg/dL (0.7-1.3); MAGNESIUM 1.8 mg/dL (1.8-2.4); POTASSIUM 3.3 mmol/L (3.5-5.1)
--- NOTE | 2019-12-28 06:14 | NUR ---
ADMITTED FROM ER UNDER 'S CARE. ADMITTED WITH WEAKNESS,UTI, BLE SWELLING. AXOX2. WALLET SENT TO SECURITIY'S OFFICE PER PT'S REQUEST. VSS. MALE EXTERNAL CATHER PLACED D/T PT BEING INCOTINENT AND SEVERE RENESS ON GROIN AND PRESSURE WOUND ON BILATERAL BUTTOCKS. NO S/S ACUTE DISTRESS NOTED OR REPORTED AT THIS TIME. WILL CONT TO MONITOR FOR ANY CHANGES IN CONDITION.
--- NOTE | 2019-12-28 08:01 | EKG ---
[facility] [place] [address] ELECTROCARDIOGRAM REPORT Name: FERDINAND WALSH Room #: 460-P ADM IN M.R.#: [id number] Admission: 12/27/19 Attend Phys: Igor Jones MD Discharge: Date of : 37 Report #: [id number] THIS REPORT FOR: cc: Luke Stapleton MD, Michael D. MD Lundgren,Eleno Montoya MD [facility] ~ THIS REPORT FOR: //name// [facility] ED Test Date: 2019-12-27 Test Time: 16:57:59 Pat Name: FERDINAND WALSH Department: Room: 460 Gender: M Housing Case Manager: [facility] : 1935 Requested By: Kenrick Merida Order Number: [id number] MD: Eleno Merida Measurements Intervals [place] Rate: 80 P: [place]: QRS: -13 QRSD: 141 T: 18 QT: 398 QTc: 460 Interpretive Statements Sinus rhythm Right bundle branch block Compared to ECG 11/11/2019 22:58:13 Ventricular premature complex(es) no longer present Electronically Signed On 12-28-2019 7:59:38 CDT by Eleno Merida [email or web address] <ELECTRONICALLY SIGNED> By: Eleno Merida MD, [facility] 12/28/19 0759 [id number] [id number] Eleno Merida MD, [facility] /EPI
[2019-12-28 09:00] VITALS: BP 107/60
[2019-12-28 10:47] LABS: ABSOLUTE NEUTROPHILS 1.7 thou/uL (1.4-8.2); ANISOCYTOSIS 3+; HYPOCHROMASIA 1+; MICROCYTES 2+
[2019-12-28 15:07] LABS: BE(vivo) 4.6 mmol/L (-2 to +3); HCO3 29.6 mmol/L (22.0-26.0); PCO2 45.9 mmHg (35.0-45.0); PO2 82.3 mmHg (80.0-100.0); pH 7.427 (7.360-7.450); sO2 96.3 % (92.0-98.0)
--- NOTE | 2019-12-28 15:17 | NUR ---
Nutrition: Pt admitted with UTI, weakness. PMH: HTN, NIDDM, Parkinsons, GERD. Saw due to wound risk which per wound care is stage 3 pressure ulcer to coccyx and left/right buttocks. Started on IV lasix for BLE edema. On 2 gm Na diet and has been too sleepy to eat today per nsg. RD familiar with pt from rehab admit in November and pt was eating 100% of meals at that time. Will add ensure max and magic cup supplement. Followup on improved alertness/po adequacy.
--- NOTE | 2019-12-28 15:53 | NUR ---
CM ATTEMPTED TWO PCS TO PT TO ASSESS DC PLANNING NEEDS WITH NO RESPONSE. KANDY SPOKE WITH NURSE AND SHE INDICATED THAT PT IS SOMEWHAT SEDATED THIS DAY. CM TO FOLLOE UP INDICATED WITH DC PLANNING.
[2019-12-28 20:17] VITALS: BP 115/70
--- NOTE | 2019-12-28 20:20 | NUR ---
ASSUMED CARE OF PT AT 0700. PT SLEEPING AT START OF SHIFT BUT ABLE TO BE AWAKENED WITH VERBAL STIMULATION. REPORTED PAIN 7/10, ADMINISTERED SCHEDULED PAIN MEDICAITONS. PT BECAME INCREASINGLY DROWSY THROUGHOUT SHIFT AND WAS AT TIMES ONLY RESPONSIVE TO PAINFUL STIMULI. PROVIDER NOTIFIED OF CHANGES TO RESPONSIVENESS, ABGS ORDERED, DISCUSSED RESULTS WITH PROVIDER. PER PROVIDER PT NOT TO RECEIVE NARCOTICS AND ULTRAM ONLY FOR PAIN. REDNESS AND WOUNDS TO BOTTOM AND GROIN, AREAS CLEANED AND TREATED PER ORDERS. EXTERNAL CATHETER IN PLACE AND DRAINING APPROPRIATELY. IV TO RIGHT AC INTACT AND FLUSHING APPROPRIATELY. ACCU CHECKS ACHS. PT WOKE AT 1700 AND REPORTED FEELING HUNGRY. PT ALERT AND ORIENTED TO PERSON AND PLACE, OCCASSIONALLY TIME. PT STATES I NEED TO GET OUT OF HERE, I DONT NEED TO BE IN THE HOSPITAL. PT REPORTS BEING UNSATISFIED WITH DIET ORDERS AND WOULD LIKE TO TALK TO PROVIDER TOMORROW ABOUT ORDERS FOR DOUBLE PROTIONS OF REGULAR DIET WITH DESSERTS. FALL PRECATUIONS IN PLACE AND NURSING WILL CONTINUE TO MONITOR.
--- NOTE | 2019-12-29 04:29 | NUR ---
Pt. rested quietly at intervals during the night when checked on during frequent rounds. He has been easily arousable. Pt. c/o being hungry and sandwich was given. Groin with redness and nystatin powder applied as ordered. Buttocks with small speratic open areas and barrier cream applied. Pt. turned and repositioned. Bed alarm is on.
[2019-12-29 07:00] VITALS: BP 126/59
--- NOTE | 2019-12-29 11:41 | NUR ---
Assumed pt care at 7am.Assessment completed.vss.Pt in bed more alert and active today.Assisted with tray set up at breakfast.Good appetite noted.Pt tolerated meds.PT/OT came and exercise with pt.No verbal c/o.Dr Porter here, order noted.Will continue to monitor.
--- NOTE | 2019-12-29 15:28 | HC ---
[facility] [place] [address] CONSULTATION Name: FERDINAND WALSH Room #: 460-P ADM IN M.R.#: [id number] Admission: 12/27/19 Attend Phys: Igor Jones MD Discharge: Date of : 36 Report #: [id number] THIS REPORT FOR: cc: Luke Stapleton MD,Yannick Kaplan MD, MD ~ CC: Igor Stapleton Chad Henry DATE OF SERVICE: 12/28/2019 CHIEF COMPLAINT: Gluteal and coccygeal pressure ulcerations. HISTORY OF PRESENT ILLNESS: This is an 84-year-old male patient with whom I am familiar from previous hospitalization who was admitted to the hospital last night with some weakness and bilateral lower extremity edema. He is mostly somnolent and snoring. He does awaken and is agreeable or cooperative with his examination, but really does not answer any questions. PAST MEDICAL HISTORY: Positive for hypertension, type 2 diabetes mellitus, gastroesophageal reflux disease, obstructive sleep apnea, not using CPAP, anxiety disorder, history of skin cancer, history of atrial fibrillation with ablation, benign prostatic hypertrophy, Parkinson's disease and chronic back pain. SOCIAL HISTORY: Positive for past alcohol use. No history of smoking or recreational drug use. FAMILY HISTORY: Unknown. MEDICATIONS: Pepcid, Zestril, Neurontin, Sinemet, cholecalciferol, Klor-Con, magnesium oxide, MiraLax. ALLERGIES: IODINATED CONTRAST, OXYCODONE. REVIEW OF SYSTEMS: Really not obtainable due to the patient's level of consciousness/alertness and willingness or ability to answer questions. All review of systems would be covered in the history of present illness or otherwise not obtainable. PHYSICAL EXAMINATION: VITAL SIGNS: At this time include temperature 36.7, pulse 58, respiratory rate 14, blood pressure 107/60. GENERAL: This is a chronically ill-appearing male patient who is mostly somnolent, awakens briefly to tactile stimulation. [address] [address] CONSULTATION Name: FERDINAND WALSH Room #: 460-P [facility] IN M.R.#: [id number] Admission: 12/27/19 Attend Phys: Igor Jones MD Discharge: Date of : 36 Report #: [id number] HEENT: Head normocephalic. Nose and throat clear. NECK: Supple. LUNGS: Clear. HEART: Irregular without obvious murmur. ABDOMEN: Soft, nontender. Pelvic region demonstrates what appeared to be stage 3 pressure ulcerations to the buttocks bilaterally into the coccygeal region. There is some evidence of some epithelialization. Otherwise, most open areas are covered with granulation tissue and these areas are not overtly infected and there is no exposure of deep structures. EXTREMITIES: Lower extremities demonstrate 2+ to 3+ edema. He has some hemosiderin staining, no weeping and no ulcerations are noted at this time. His heels are intact. NEUROLOGIC: The patient appears to move spontaneously in a symmetrical fashion. His level of alertness is diminished. LABORATORY DATA: Sodium 137, potassium 4.0, chloride 102, CO2 of 30, BUN 17, creatinine 0.8, glucose 89. Albumin is 3.9. White blood cell count 4.3 with hemoglobin of 10.9, hematocrit 34.2. CLINICAL IMPRESSION: 1. Stage 3 pressure ulceration to the buttocks bilaterally and stage 3 pressure ulceration to the coccyx. 2. Bilateral lower extremity edema. 3. Chronic back pain. 4. Hypertension. 5. Parkinson's disease. 6. Type 2 diabetes mellitus. RECOMMENDATIONS: At this point in time, the patient will be placed on low air loss mattress. He will need q. 2 hour turning and positioning. We will recommend a zinc oxide based moisture barrier cream to the coccygeal and gluteal region bilaterally daily and p.r.n. These areas can be otherwise left open to air. He will need PRAFO boots for pressure prophylaxis of his heels. He will need ongoing nutritional support to maximize wound healing and maintenance of good glycemic control, continuation of current medications, would benefit from PT, OT as able. I appreciate being asked to see him in consultation. <ELECTRONICALLY SIGNED> By: Yannick Alfredo MD 12/29/19 1528 [id number] Yannick Alfredo MD /nt
--- NOTE | 2019-12-29 16:02 | NUR ---
PT ADMITTED RELATED TO UTI AND WEAKNESS. CM HAD ATTEMPTED TO REACH PT IN [facility] YESTERDAY WITH NO SUCCESS. CM SPOKE WITH PT OVER THE PHONE TODAY. PT INDICATED HE LIVE IN A HOUSE WITH HIS SON WHO HAS CP AND TOURETE'S. HE INDICATED THERE IS 1 STEPS O ENTER HOUSE THEN ALL NEEDS ON 1 LEVEL. PT INIDCATED HE HAD BEEN ISSUED A MANUAL WC UPON HIS DISCHARGE FROM [address] [place], [place] [address]AB 12/12. HE INIDCATED HE HAD BEEN ON SERVICE WITH PT BUT COULDN'T CONFIRM PROVIER NAME. PT HAD GOTTEN WC THROUGH [facility] AND HAD BEEN ON SERVICE WITH [facility] HH PER RECORD. [facility] INDIC[facility] THEY WOULD NOT ACCEPT PT BACK FOR SERVICES UPON DC THEY DIDN'T FEEL PT WAS SAFE IN THE HOME ENVIONMENT. CM ASKED PT HOW HE HAD BEEN DOING AT HOME AND HE INDICATED HE HAD DIARRHEA REALLY BAD AND HAD GOTTEN VERY WEAK. PT AND OT SAW PT AND BOTH INDICATED THAT PT WOULD LIKELY BENEFIT FROM ANOTHER POST ACUTE CARE STAY. CM SPOKE WITH PT ABOUT GOING SOMEWERE FOR REHAB AND HE INDICATED THAT [facility] COULD CONSULT AND ALSO SEEMED SOMEWHAT RECEPTIVE TO REFERRAL BEING SENT TO [facility] FOR REVIEW IS SKILLED IS MORE APPROPRIATE. HE INDICATED THAT ONE OF HIS SON'S FRIENDS FATHERS IS CHECKING IN ON HIM ONCE A WEEK TO TAKE HIM TO HE STORE TO GET GROCERIES OTHERWISE HE INDICATED HIS SON IS CAPABLE OF CARING FOR HIMSELF. [facility] CONSULT ENTERED. CM TO FOLLOW INDICATED WITH DC PLANNING.
[2019-12-29 16:45] VITALS: BP 133/57
[2019-12-29 19:27] VITALS: BP 132/73
[2019-12-30] VITALS (7 sets, daily range): BP systolic 145–160; BP diastolic 69–88
--- NOTE | 2019-12-30 08:19 | NUR ---
PROGRESS PT A/O X4 PLEASANT AND COOPERATIVE VOIDING PER URINAL VSS, ZGUARD AND BARRIER CREAM APPLIED PRN AND PT TURNED Q2HRS BY HIMSELF UPON REQUEST. WANTS TO DC TO REHAB TODAY.
[2019-12-30] MEDS ORDERED: TRAMADOL 50 MG50 MG PO (10:12)
[2019-12-30] MEDS ORDERED: CEFUROXIME500 MG PO (10:13)
[2019-12-30] MEDS ORDERED: PREDNISONE 20 M20 M1 PO (10:13)
--- NOTE | 2019-12-30 15:03 | NUR ---
CM NOTIFIED PT THAT [facility] CAN'T ACCEPT HIM FOR ACUTE POST ACUTE CARE STAY. PT WAS DISAPOINTED AND ASKED TO SPEAK WITH RESP THER OR PHYSICIAN. RESP THER MET WITH PT AND INDICATED WHY. CM FOLLOWED UP AND SPOKE WITH PT ABOUT [facility] OR [facility] ([facility]). PT INIDCATED HE DIDN'T WANT TO GO ANYWHERE BUT HER OR HOME. CM EXPLAINED WHY PT WOULD BENEFIT AND THAT CARE TEAM WOULD BE CONCERNED ABOUT PT RETURNING DIRECTLY HOME IN CURRENT CONDITION. CM EXPLAINED THAT [facility] WOULDN'T TAKE HIM BACK FOR HH SERVICES SO CM WOULD HAVE TO FIND A NEW PROVIDER FOR HIM. PHYSICIAN ORDER P, OT, ST, NURSING, AID, AND SW. LOOKING FOR ACCEPTING HH PROVIDER. PT INDICATED HE WOULD NEED TRANSPORT HOME VIA WC [facility]AN BUT THAT HIS SON IS HOME TO RECEIVE HIM. CM EXPLAINED THAT CM FELT COMPELLED TO HOTLINE PT UPON DC DUE TO CONCERN ABOUT PT BEING TO PERFOM SELF CARES AND ADLS. PT EXRESSED UNDERSTANDING. CM TO [facility]ED [facility] ONCE HH PROVIDER IS ESTABLISHED AND HOTINE.
--- NOTE | 2019-12-30 15:06 | NUR ---
[facility] CONSULT RECEIVED FOR THIS Pt. Pt SEEN BY GRETEL WAYNE NP. Pt DOES NOT MEET DIAGNOSTIC CRITERIA FOR [facility]. RECOMMENDATION IS FOR SNF. CASE MANAGEMENT UPDATED. THANK YOU FOR THIS CONSULT.
--- NOTE | 2019-12-30 16:48 | NUR ---
FAXED REFERRAL TO [facility] SPOKE WITH INTAKE THEY ARE OUT OF NETWORK WITH INSURANCE. FAXED REFERRAL TO [facility] THEY HAD PT ON SERVICE WITH THEM IN THE PAST AND THEY WILL NOT TAKE BACK HE IS NONCOMPLIANT. FAXED REFERRAL TO [facility] SPOKE WITH [facility] IN INTAKE THEY CAN ACCEPT FAXED DC ORDERS/SUMMARY TO [facility] RECEIVED CONFIRMATION THEY WILL NOTIFY PT TIME OF VISITS TO BE STARTED THURSDAY.
--- NOTE | 2020-01-02 12:22 | NUR ---
PT DISCHARGED FROM HOSPITAL Thursday12/30/19 TO HOME WITH [facility]. RECEIVED CALL THIS AM FROM NURSE STATING PT IS UNABLE TO GET OUT OF CHAIR AND NEEDING TO BE ADMITTED FOR REHAB OR SKILLED STAY. FAXED REFERRAL TO [facility] SPOKE WITH TIGIST INB ADM SHE CAN ACCEPT SHE IS GOING TO CALL [facility] AN SPEAK WITH THEM. ALSO FAXED REFERRAL TO [facility] OF OP RECEIVED DEANNA SORIA LEFT MS WITH FARIDEH IN ADM.
== END 2019-12-30 18:48 | disposition home health service (06) | DRG 689 ==
LOC: ER 16:48 → EROBS 17:57 → 4W 17:57
PROVIDERS: Emergency Medicine; Hospitalist; Nurse Practitioner; ADMIT Internal Medicine
DX: N39.0 Urinary tract infection, site not specified (principal); L89.323 Pressure ulcer of left buttock, stage 3; L89.313 Pressure ulcer of right buttock, stage 3; L89.153 Pressure ulcer of sacral region, stage 3; E43 Unspecified severe protein-calorie malnutrition; M54.12 Radiculopathy, cervical region; R53.81 Other malaise; D50.9 Iron deficiency anemia, unspecified; G20 Parkinson's disease; E11.9 Type 2 diabetes mellitus without complications; E78.5 Hyperlipidemia, unspecified; G89.29 Other chronic pain; F41.9 Anxiety disorder, unspecified; N40.0 Benign prostatic hyperplasia without lower urinary tract symptoms; M54.9 Dorsalgia, unspecified; G47.33 Obstructive sleep apnea (adult) (pediatric); I48.0 Paroxysmal atrial fibrillation; F11.90 Opioid use, unspecified, uncomplicated; E53.8 Deficiency of other specified B group vitamins; E55.9 Vitamin D deficiency, unspecified; B96.89 Other specified bacterial agents as the cause of diseases classified elsewhere; Z88.8 Allergy status to other drugs, medicaments and biological substances; Z88.6 Allergy status to analgesic agent; Z91.041 Radiographic dye allergy status
CPT/HCPCS: 10047

== ENCOUNTER 2020-01-03 17:34 | Emergency (ER) | payer OTHER ==
[~2020-01-03] VITALS: Ht 172.7 cm; Wt 99.8 kg
--- NOTE | ~2020-01-03 | EMS ---
[place] [address] EMS Patient Care Report Name: FERDINAND WALSH Room #: REG CARRIE James#: [id number] Admission: 01/03/20 Attend Phys: Discharge: Date of : 36 Report #: [id number] THIS REPORT FOR: //name// Report Transmitted: 01/03/2020 16:48 EMS Care Summary [place], [place]/[facility] Incident [id number] @ 01/03/2020 16:56 Incident Location [address] [place] [address] Patient FERDINAND WALSH Male, 84 Years 1935 Patient Address [address] [place] [address] Patient History Diabetes,Hypertension (HTN),Parkinson's Disease,Back Pain (Chronic), Patient Allergies Other drug allergy, Patient Medications Tramadol, Benztropine, Hydrocodone, Metformin, Lisinopril, Simvastatin, Omeprazole, Carbidopa, Alprazolam, Chief Complaint STAGE 3 ULCER Disposition Transported No Lights/[place] Dispatch Reason Sick Person Transported To [facility] Narrative PT FOUND SITTING IN CHAIR. [facility] P36 ALSO RESPONDED. HOME HEALTH NURSE STATES THAT PT WAS SUPPOSED TO GO TO REHAB FOR HIS STAGE 3 ULCER ON HIS BOTTOM, BUT REFUSED TO GO. SHE STATES THAT PT IS UNABLE TO STAND FOR [place] [address] EMS Patient Care Report Name: FERDINAND WALSH Room #: REG Rogelio.#: [id number] Admission: 01/03/20 Attend Phys: Discharge: Date of : 36 Report #: [id number] AND NEEDS TO GO TO ED FOR ADMIT SO INSURANCE CAN GET PT ADMITTED TO REHAB AGAIN. PT DENIES OTHER COMPLAINTS. PT PLACED ON MARIO NUCLEAR ENGINEERING TECHNICIAN TO GET HIM OUR OF HOUSE AND ONTO COT. SURGICAL MASK PLACED ON PT FOR TRASNPORT. TRANSPORTED WITHOUT INCIDENT. Initial Vitals @17:13P: 85,R: 18,BP: 169/83,Pain: 4/10,GCS: 15,SpO2: 99,Revised Trauma: 12, Assessments @17:05MENTAL:No Abnormalities,SKIN:No Abnormalities,HEENT:Head/Face: No Abnormalities,Eyes: No Abnormalities,Neck/Airway: No Abnormalities,LUNG SOUNDS:ABDOMEN:PELVIS//GI:EXTREMITIES:PULSE:NEURO:No Abnormalities, Impression Generalized Weakness Procedures @17:05ALS AssessmentResponse: UnchangedSucceeded Timeline 16:55,Call Received 16:55,Dispatch Notified 16:56,Dispatched 16:58,En Route 17:04,On Scene 17:05,At Patient 17:05,ALS Assessment,Response: UnchangedSucceeded, 17:13,BP: 169/83 M,PULSE: 85,RR: 18 R,SPO2: 99 Ox,ETCO2: ,BG: ,PAIN: 4,GCS: 15, 17:15,Depart Scene 17:26,At Destination 17:43,Call Closed Disclaimer v1.1 Copyright 2020 [employer] This EMS Care Summary contains data elements from the applicable legal record (which may be displayed differently). It is designed to provide pertinent information for the following purposes: continuity of care, clinical quality, and state data reporting. The complete legal record is available to ED staff and administrators of the receiving hospital in [employer]'s Patient Tracker. All data is provided "as is."
[~2020-01-03 17:34] MED LIST changes: +PREDNISONE 20 M20 M1 PO
[2020-01-03 18:39] LABS: HEMATOCRIT 34.1 % (42.0-52.0); HEMOGLOBIN 10.7 gm/dL (14.0-18.0); MCH 23.6 pg (26.0-34.0); MCHC 31.3 g/dL (28.0-37.0); MCV 75.3 fL (80.0-100.0); PLATELET COUNT 165 thou/uL (150-400); RBC 4.54 mil/uL (4.50-6.00); RDW 22.9 % (10.5-14.5); WBC 3.9 thou/uL (4.0-11.0)
[2020-01-03 18:41] LABS: CREATININE 0.8 mg/dL (0.7-1.3); MAGNESIUM 1.7 mg/dL (1.8-2.4); POTASSIUM 3.5 mmol/L (3.5-5.1)
[2020-01-03 19:10] LABS: ABSOLUTE NEUTROPHILS 2.1 thou/uL (1.4-8.2); ANISOCYTOSIS 2+
[2020-01-03 19:11] LABS: HYPOCHROMASIA 1+; MICROCYTES 1+; OVALOCYTES OCCASIONAL; POLYCHROMASIA OCCASIONAL
[2020-01-03 21:19] VITALS: BP 147/67
== END 2020-01-03 21:59 | disposition home or self-care (01) ==
LOC: ER 17:34
PROVIDERS: Emergency Medicine
DX: L89.151 Pressure ulcer of sacral region, stage 1 (principal); E11.622 Type 2 diabetes mellitus with other skin ulcer; I10 Essential (primary) hypertension; I48.91 Unspecified atrial fibrillation; E11.9 Type 2 diabetes mellitus without complications; E78.5 Hyperlipidemia, unspecified; G89.29 Other chronic pain; G20 Parkinson's disease; K21.9 Gastro-esophageal reflux disease without esophagitis; Z79.899 Other long term (current) drug therapy; Z88.6 Allergy status to analgesic agent; Z91.041 Radiographic dye allergy status

== ENCOUNTER 2020-03-01 13:34 | Inpatient (IN) | payer OTHER ==
[~2020-03-01] VITALS: Ht 172.7 cm; Wt 86.2 kg
[2020-03-01 13:36] VITALS: BP 99/56
[2020-03-01 14:03] LABS: HEMATOCRIT 34.7 % (42.0-52.0); HEMOGLOBIN 11.4 gm/dL (14.0-18.0); MCH 24.9 pg (26.0-34.0); MCHC 32.9 g/dL (28.0-37.0); MCV 75.6 fL (80.0-100.0); PLATELET COUNT 168 thou/uL (150-400); RBC 4.58 mil/uL (4.50-6.00); RDW 22.5 % (10.5-14.5); WBC 5.5 thou/uL (4.0-11.0)
[2020-03-01 14:12] LABS: CALCIUM 9.3 mg/dL (8.5-10.1); CREATININE 1.6 mg/dL (0.7-1.3); POTASSIUM 3.3 mmol/L (3.5-5.1)
[2020-03-01 14:22] LABS: ANISOCYTOSIS 1+; PLATELET ESTIMATE NORMAL
[2020-03-01 18:15] LABS: URINE BILIRUBIN NEGATIVE (Negative); URINE BLOOD TRACE (Negative); URINE COLOR YELLOW; URINE GLUCOSE-RANDOM* NEGATIVE (Negative); URINE KETONES NEGATIVE (Negative); URINE PROTEIN (DIPSTICK) NEGATIVE (Negative); URINE SPECIFIC GRAVITY <= 1.005 (1.005-1.035); URINE UROBILINOGEN 0.2 E.U./dl (0.2-1.0)
[2020-03-01 18:19] LABS: URINE CLARITY SL HAZY; URINE LEUKOCYTES-REFLEX 3+ (Negative); URINE NITRITE-REFLEX POSITIVE (Negative)
[2020-03-01 18:20] LABS: BACTERIA-REFLEX >30 Many /HPF (None Seen); CASTS None Seen /LPF (None Seen); CRYSTALS None Seen /LPF (None Seen); SQUAMOUS None Seen /LPF (0-3); URINE RBC None Seen /HPF (0-2); URINE WBC-REFLEX >25 Many /HPF (0-5)
[2020-03-01] MEDS ORDERED: FUROSEMIDE 40 M40 M1 PO (18:38)
[2020-03-01] MEDS ORDERED: AMLODIPINE BESY10 MG PO (18:39)
[2020-03-01] MEDS ORDERED: TRIAMTERENE-HC1 EAC3 PO ×2 (18:42)
[2020-03-01] MEDS ORDERED: ATENOLOL 100MG100 MG PO (18:43)
[2020-03-01] MEDS ORDERED: TRIHEXYPHENIDYL2 M1 PO (18:43)
[2020-03-01] MEDS ORDERED: JANUMET 50-1,01 EACH PO (18:44)
[2020-03-01] MEDS ORDERED: LISINOPRIL40 MG PO (18:44)
[2020-03-01] MEDS ORDERED: FLOMAX0.4 MG PO (18:45)
[2020-03-01] MEDS ORDERED: GLUCOPHAGE1000 MG PO (18:45)
[2020-03-01] MEDS ORDERED: CHLORTHALIDONE25 MG PO (18:45)
[2020-03-01] MEDS ORDERED: CARBIDOPA-LEVO1 EA10 PO (19:37)
[2020-03-01 19:47] LABS: ALBUMIN 3.7 g/dL (3.4-5.0); TOTAL PROTEIN 7.1 g/dL (6.4-8.2)
[2020-03-01 20:12] LABS: TSH 1.281 uIU/mL (0.358-3.740)
[2020-03-01 21:45] VITALS: BP 116/51
[2020-03-01 21:59] VITALS: BP 102/63
[2020-03-01 22:20] VITALS: BP 138/81
[2020-03-02 04:00] VITALS: BP 142/98
[2020-03-02 06:13] LABS: HEMATOCRIT 31.5 % (42.0-52.0); HEMOGLOBIN 10.3 gm/dL (14.0-18.0); MCHC 32.6 g/dL (28.0-37.0); MCV 76.7 fL (80.0-100.0); RBC 4.1 mil/uL (4.50-6.00); WBC 4.2 thou/uL (4.0-11.0)
[2020-03-02 06:15] LABS: CALCIUM 8.5 mg/dL (8.5-10.1); CREATININE 1.2 mg/dL (0.7-1.3); MAGNESIUM 2.1 mg/dL (1.8-2.4); POTASSIUM 3.3 mmol/L (3.5-5.1)
[2020-03-02 07:16] VITALS: BP 97/55
[2020-03-02 09:41] LABS: OBSERVED RETIC COUNT 0.56 % (0.6-2.6)
[2020-03-02 09:46] LABS: % SATURATION 18 % (20-39); IRON 48 ug/dL (65-175); TIBC 274 ug/dL (250-450)
[2020-03-02 16:05] VITALS: BP 102/66
[2020-03-02 19:48] VITALS: BP 102/55
[2020-03-03 05:37] LABS: HEMOGLOBIN 9.2 gm/dL (14.0-18.0); MCH 24.7 pg (26.0-34.0); MCHC 31.7 g/dL (28.0-37.0); MCV 78.2 fL (80.0-100.0); RBC 3.71 mil/uL (4.50-6.00); RDW 22.7 % (10.5-14.5); WBC 3.5 thou/uL (4.0-11.0)
[2020-03-03 05:51] LABS: CALCIUM 8.3 mg/dL (8.5-10.1); MAGNESIUM 1.8 mg/dL (1.8-2.4)
[2020-03-03 08:18] VITALS: BP 133/86
[2020-03-03 15:15] VITALS: BP 109/73
[2020-03-03 19:20] VITALS: BP 105/66
[2020-03-04 03:30] VITALS: BP 140/76
[2020-03-04 05:37] LABS: CALCIUM 8.1 mg/dL (8.5-10.1); CREATININE 0.7 mg/dL (0.7-1.3); MAGNESIUM 1.6 mg/dL (1.8-2.4); POTASSIUM 3.5 mmol/L (3.5-5.1)
[2020-03-04 05:43] LABS: HEMATOCRIT 27.1 % (42.0-52.0); HEMOGLOBIN 8.7 gm/dL (14.0-18.0); MCH 24.9 pg (26.0-34.0); MCHC 32.1 g/dL (28.0-37.0); MCV 77.5 fL (80.0-100.0); RBC 3.5 mil/uL (4.50-6.00); RDW 21.3 % (10.5-14.5); WBC 3.1 thou/uL (4.0-11.0)
[2020-03-04 07:15] VITALS: BP 127/76
[2020-03-04 15:35] VITALS: BP 113/69
[2020-03-04 19:21] VITALS: BP 115/74
[2020-03-05 05:13] LABS: HEMATOCRIT 23.8 % (42.0-52.0); HEMOGLOBIN 7.6 gm/dL (14.0-18.0); MCHC 32.2 g/dL (28.0-37.0); MCV 77.6 fL (80.0-100.0); RBC 3.06 mil/uL (4.50-6.00); RDW 22.2 % (10.5-14.5); WBC 3.5 thou/uL (4.0-11.0)
[2020-03-05 05:37] LABS: CREATININE 0.7 mg/dL (0.7-1.3); MAGNESIUM 1.6 mg/dL (1.8-2.4)
[2020-03-05 07:46] VITALS: BP 131/79
[2020-03-05 15:14] VITALS: BP 122/74
[2020-03-05 20:55] VITALS: BP 136/72
[2020-03-06 07:42] VITALS: BP 120/74
[2020-03-06 15:08] VITALS: BP 139/69
[2020-03-06 21:01] VITALS: BP 137/69
[2020-03-07 05:53] LABS: HEMATOCRIT 22.6 % (42.0-52.0); HEMOGLOBIN 7.3 gm/dL (14.0-18.0); MCH 25.1 pg (26.0-34.0); MCHC 32.3 g/dL (28.0-37.0); MCV 77.6 fL (80.0-100.0); RBC 2.92 mil/uL (4.50-6.00); RDW 22.3 % (10.5-14.5); WBC 3.3 thou/uL (4.0-11.0)
[2020-03-07 06:08] LABS: CALCIUM 8.2 mg/dL (8.5-10.1); CREATININE 0.7 mg/dL (0.7-1.3); MAGNESIUM 1.7 mg/dL (1.8-2.4); POTASSIUM 3.7 mmol/L (3.5-5.1)
[2020-03-07 07:13] VITALS: BP 137/72
[2020-03-07 15:00] VITALS: BP 95/52
[2020-03-07 19:54] VITALS: BP 129/59
[2020-03-08 03:38] LABS: MCH 25.2 pg (26.0-34.0); MCV 78.8 fL (80.0-100.0); RBC 2.79 mil/uL (4.50-6.00); RDW 22.6 % (10.5-14.5); WBC 3.1 thou/uL (4.0-11.0)
[2020-03-08 07:23] VITALS: BP 143/72
--- NOTE | 2020-03-08 08:32 | HC ---
[facility] [place] [address] CONSULTATION Name: FERDINAND WALSH Room #: 453-P ADM IN M.R.#: [id number] Admission: 03/01/20 Attend Phys: Igor Jones MD Discharge: Date of : 36 Report #: [id number] THIS REPORT FOR: cc: Chad Henry,Pepito Daniels MD ~ CC: Igor Henry DATE OF SERVICE: 03/02/2020 WOUND CARE CONSULTATION PERSONAL PHYSICIAN: Not on staff. CHIEF COMPLAINT: Multiple decubitus ulcers. HISTORY OF PRESENT ILLNESS: This is an 84-year-old white male with history of type 2 diabetes and Parkinson disease, who has been several admissions for urinary tract infections in the past. The patient has been evaluated by our group in the past for bilateral ischial ulcerations and bilateral gluteal decubitus ulcers, all of which were stage 3. The patient most recently had been admitted to rehab facility after recurrent urinary tract infection. The patient now was supposedly having complaints of right-sided facial pain and swelling and it was found the patient was extremely filthy. Upon arrival to the Emergency Department and his decubitus ulcers were contaminated with stool, but did not appear to be acutely infected. The patient has now been admitted for IV fluids, IV antibiotics. We have been asked to follow him for his chronic decubitus ulcers. The patient denies any associated pain in the ulcers. The patient denies any other associated new ulcers. PAST MEDICAL HISTORY: Significant for hypertension, type 2 diabetes, sleep apnea, anxiety, Parkinson's disease, chronic back pain. CURRENT MEDICATIONS: Multiple, I reviewed the patient's medication list. DRUG ALLERGIES: OXYCODONE. SOCIAL HISTORY: The patient denies tobacco use, has a previous history of alcohol use. FAMILY HISTORY: Not pertinent to current medical condition. REVIEW OF SYSTEMS: CONSTITUTIONAL: The patient denies fevers or chills. NEUROLOGIC: The patient with overall generalized weakness, but no isolated [facility] [address] [place] [address] CONSULTATION Name: FERDINAND WALSH Room #: 453-P [facility] IN M.R.#: [id number] Admission: 03/01/20 Attend Phys: Igor Jones MD Discharge: Date of : 36 Report #: [id number] weakness in arms or legs. EYES: No complaints. ENT: No complaints. CARDIAC: The patient denies chest pain, palpitations, or peripheral edema. RESPIRATORY: The patient denies shortness of breath, cough or wheezes. GASTROINTESTINAL: The patient denies nausea, vomiting, or abdominal pain. GENITOURINARY: The patient does complain of urgency and frequency. MUSCULOSKELETAL: No complaints. SKIN: The patient has chronic decubitus ulcers in the gluteal and ischial region. PHYSICAL EXAMINATION: VITAL SIGNS: Temperature 36.3, pulse 58, respirations 16, BP 97/55. GENERAL: This is alert and oriented x 2, person and place, but not time, elderly, chronically ill-appearing white male who is in no obvious distress. HEENT: Normocephalic, atraumatic. Mucous membranes are dry. Pupils are round. Sclerae white. NECK: Supple, nontender. LUNGS: Slight diminished breath sounds heard throughout with occasional scattered wheeze. HEART: Regular. ABDOMEN: Obese, soft, nontender. EXTREMITIES: The patient moves all extremities without difficulty. Bilateral heels are intact. Distal pulses are intact. Evaluation of the gluteal and ischial region reveals resolving stage 3 decubitus ulcers to the bilateral ischial regions as well as bilateral superior gluteal region. There are no signs of cellulitis or fluctuance. Rest of the jane-wound is all intact. There is no significant tunneling or undermining. There is minimal to no drainage. NEUROLOGIC: Cranial nerves 2-12 grossly intact. Motor and sensory are grossly intact. LABORATORY DATA: White count 4.2, hemoglobin 10.3, BUN 47, creatinine 1.2, albumin 3.7 and prealbumin 26.5. IMPRESSION: 1. Chronic bilateral ischial decubitus ulcer, stage 3, overall improving. 2. Chronic bilateral superior gluteal stage 3 decubitus ulcers, overall improving. 3. Recurrent urinary tract infection. 4. Generalized debility. 5. History of Parkinsonism. PLAN: Instruct Z-Guard to the sites 3 times daily. Leave open to air. The patient will be on a low air loss mattress, having turned every 2 hours. We will consult Physical and Occupational Therapy to utilize for strengthening. We will make sure we maximize the patient's protein supplementation for continued [address] [address] CONSULTATION Name: FERDINAND WALSH Room #: 453-P [facility] IN M.R.#: [id number] Admission: 03/01/20 Attend Phys: Igor Jones MD Discharge: Date of : 36 Report #: [id number] healing. Continue all other current medications. We will continue to follow the patient. <ELECTRONICALLY SIGNED> By: Pepito Wu MD 03/08/20 0832 1348 1840 Pepito Wu MD /nt
--- NOTE | 2020-03-08 15:41 | P ---
[facility] [place] [address] PROCEDURE REPORT Name: FERDINAND WALSH Room #: 453-P ADM IN M.R.#: [id number] Admission: 03/01/20 Attend Phys: Igor Jones MD Discharge: Date of : 36 Report #: [id number] THIS REPORT FOR: cc: Chad Henry Theodore M. DO McElhinney, Christian C. MD ~ CC: IGOR Henry DATE OF SERVICE: 03/07/2020 PROCEDURE PERFORMED: Upper endoscopy. HISTORY OF PRESENT ILLNESS: The patient is an 84-year-old male with multiple medical problems. REASON FOR GI CONSULTATION: Anemia. Hemoglobin on admission on 03/01/2020 was 11.4, it dropped to 7.3. Stool hemoccult testing was positive on 03/06/2020. The patient does have a history of possible dark stools, has been on iron in the past as well as aspirin. I discussed options with the patient yesterday. It has been approximately 10 years since his last EGD or colonoscopy. We therefore discussed proceeding with both EGD and colonoscopy today; however, the patient refused prepping last evening, therefore, plan is for EGD today. DESCRIPTION OF PROCEDURE: The risks and benefits of the procedure were explained to the patient, those risks including but not limited to bleeding, perforation and the risk of sedation. He understood these risks and gave informed consent. Sedation was given using propofol per anesthesia. Next, using a standard Olympus upper endoscope, the scope was placed in the patient's mouth and advanced under direct vision through the esophagus, stomach and into the second portion of the duodenum. The esophagus was normal throughout. The GE junction was normal. Upon entering the stomach, a small to medium size hiatal hernia was noted. There was a moderate amount of food residual within the gastric fundus. There was no obvious blood throughout the exam. In the portion of the gastric fundus and body that were able to be visualized, a moderate gastritis was noted. No evidence of bleeding. The gastric antrum was normal. The pylorus was normal and patent. The duodenal bulb, first and second portion were all normal. At this point, the scope was then withdrawn and the procedure terminated. The patient tolerated the procedure well. IMPRESSION: 1. Gastritis, no active bleeding, although could be source of Hemoccult positive stool. 2. Hiatal hernia. 3. Moderate food residual suggesting possible gastroparesis. [facility] [address] [place] [address] PROCEDURE REPORT Name: FERDINAND WALSH Room #: 453-P [facility] IN .R.#: [id number] Admission: 03/01/20 Attend Phys: Igor Jones MD Discharge: Date of : 36 Report #: [id number] RECOMMENDATIONS: 1. Continue PPI therapy. 2. Continue to monitor hemoglobin closely. If drop in hemoglobin, may need to consider colonoscopy. Of note, the patient refused prep last night; however Thank you for allowing me to participate in his care. <ELECTRONICALLY SIGNED> By: Roshan Dockery MD 03/08/20 1541 1147 1503 Roshan Dockery MD /nt
[2020-03-08 15:48] VITALS: BP 110/66
[2020-03-08 19:43] VITALS: BP 105/66
[2020-03-09 05:35] LABS: HEMOGLOBIN 7.4 gm/dL (14.0-18.0); MCH 25.4 pg (26.0-34.0); MCHC 32.4 g/dL (28.0-37.0); MCV 78.5 fL (80.0-100.0); RBC 2.93 mil/uL (4.50-6.00); RDW 23.8 % (10.5-14.5); WBC 2.7 thou/uL (4.0-11.0)
[2020-03-09 08:08] VITALS: BP 151/86
--- NOTE | 2020-03-09 15:00 | P ---
[facility] [place] [address] PROCEDURE REPORT Name: FERDINAND WALSH Room #: 453-P [facility] IN M.R.#: [id number] Admission: 03/01/20 Attend Phys: Igor Jones MD Discharge: Date of : 36 Report #: [id number] THIS REPORT FOR: cc: Chad Henry Theodore M. DO McElhinney, Christian C. MD ~ CC: Igor Henry DATE OF SERVICE: 03/09/2020 PROCEDURE PERFORMED: Colonoscopy. HISTORY OF PRESENT ILLNESS: The patient is an 84-year-old male with a history of anemia and drop in his hemoglobin. Hemoccult positive stools during this hospitalization. Hemoglobin has dropped from 11.4 initially on admission 03/01/2020 to 7.4. Upper endoscopy was performed showing gastritis. There was food residual within the stomach, which did limit visualization somewhat. No evidence of active bleeding. Last colonoscopy was greater than 10 years ago. Plan is for colonoscopy. DESCRIPTION OF PROCEDURE: The risks and benefits of the procedure were explained to the patient, those risks including but not limited to bleeding, perforation and the risk of sedation. He understood these risks and gave informed consent. Sedation was given using propofol per Anesthesia. Next, a digital rectal exam was initially performed, which was normal. Next, using a standard Olympus colonoscope, the scope was placed in the patient's anus and advanced under direct vision to the cecum. The overall prep was good in most areas; however, it was somewhat fair to poor in a few small areas. Most areas were well visualized however. The cecum and ileocecal valve were normal in appearance. The ascending, transverse, descending and sigmoid colon in the areas that were visualized were normal. No evidence of colitis, no polyps, no masses were noted. The rectal mucosa was normal. On retroflexion, small nonbleeding internal hemorrhoids were noted. The scope was then withdrawn and the procedure terminated. The patient tolerated the procedure well. IMPRESSION: 1. Small internal hemorrhoids. 2. Otherwise, normal colonoscopy. Visualization was somewhat limited in small areas due to poor prep. RECOMMENDATIONS: 1. Continue to monitor hemoglobin. 2. If he has continued drop in hemoglobin, may consider M2 capsule for further evaluation of small bowel. [address] [address] PROCEDURE REPORT Name: RASHADFERDINAND YATES Room #: 453-P [facility] IN M.R.#: [id number] Admission: 03/01/20 Attend Phys: Igor Jones MD Discharge: Date of : 36 Report #: [id number] Thank you for allowing me to participate in his care. <ELECTRONICALLY SIGNED> By: Roshan Dockery MD 03/09/20 1500 1103 1313 Roshan Dockery MD /nt
[2020-03-09 15:10] VITALS: BP 132/68
[2020-03-09 19:56] VITALS: BP 135/78
[2020-03-10 06:26] LABS: CALCIUM 8.5 mg/dL (8.5-10.1); CREATININE 0.8 mg/dL (0.7-1.3); POTASSIUM 3.5 mmol/L (3.5-5.1)
[2020-03-10 06:30] LABS: HEMATOCRIT 23.4 % (42.0-52.0); HEMOGLOBIN 7.5 gm/dL (14.0-18.0); MCH 25.5 pg (26.0-34.0); MCHC 31.9 g/dL (28.0-37.0); MCV 79.8 fL (80.0-100.0); RBC 2.93 mil/uL (4.50-6.00); RDW 24.1 % (10.5-14.5)
[2020-03-10 08:10] VITALS: BP 135/85
[2020-03-10] MEDS ORDERED: IRON325 PO (13:48)
[2020-03-10] MEDS ORDERED: CARBIDOPA-LEVO1 EA10 PO (13:49)
[2020-03-10] MEDS ORDERED: LINEZOLID600 MG PO (13:50)
[2020-03-10 13:59] VITALS: BP 135/78
[2020-03-10 17:23] VITALS: BP 133/81
== END 2020-03-10 20:38 | DRG 682 ==
LOC: ER 13:34 → EROBS 19:16 → 4W 19:16
PROVIDERS: Emergency Medicine; Hospitalist; Nurse Practitioner; ADMIT Internal Medicine; ATTEND Internal Medicine
PROC: 0DJ08ZZ Inspection of Upper Intestinal Tract, Via Natural or Artificial Opening Endoscopic (ICD-10-PCS; principal; 2020-03-07)
PROC: 0DJD8ZZ Inspection of Lower Intestinal Tract, Via Natural or Artificial Opening Endoscopic (ICD-10-PCS; 2020-03-09)
DX: N17.9 Acute kidney failure, unspecified (principal); L89.153 Pressure ulcer of sacral region, stage 3; E43 Unspecified severe protein-calorie malnutrition; L89.323 Pressure ulcer of left buttock, stage 3; L89.313 Pressure ulcer of right buttock, stage 3; D61.818 Other pancytopenia; N39.0 Urinary tract infection, site not specified; K29.70 Gastritis, unspecified, without bleeding; I10 Essential (primary) hypertension; K21.9 Gastro-esophageal reflux disease without esophagitis; F41.9 Anxiety disorder, unspecified; N40.0 Benign prostatic hyperplasia without lower urinary tract symptoms; G89.29 Other chronic pain; M54.9 Dorsalgia, unspecified; G20 Parkinson's disease; K44.9 Diaphragmatic hernia without obstruction or gangrene; K64.8 Other hemorrhoids; E11.40 Type 2 diabetes mellitus with diabetic neuropathy, unspecified; M54.12 Radiculopathy, cervical region; D50.9 Iron deficiency anemia, unspecified; R63.4 Abnormal weight loss; I95.9 Hypotension, unspecified; K59.00 Constipation, unspecified; I48.0 Paroxysmal atrial fibrillation; B95.7 Other staphylococcus as the cause of diseases classified elsewhere; Z20.828 Contact with and (suspected) exposure to other viral communicable diseases; Z88.6 Allergy status to analgesic agent; Z91.041 Radiographic dye allergy status; Z83.3 Family history of diabetes mellitus; Z82.49 Family history of ischemic heart disease and other diseases of the circulatory system; Z88.8 Allergy status to other drugs, medicaments and biological substances; Z80.0 Family history of malignant neoplasm of digestive organs; Z68.28 Body mass index [BMI] 28.0-28.9, adult
CPT/HCPCS: 10040; 62110; 62900; 70005

== ENCOUNTER 2020-03-12 01:12 | Emergency (ER) | payer OTHER ==
[~2020-03-12] VITALS: Ht 172.7 cm; Wt 97.1 kg
[~2020-03-12 01:12] MED LIST changes: +AMLODIPINE BESY10 MG PO; +CARBIDOPA-LEVO1 EA10 PO; +FUROSEMIDE 40 M40 M1 PO; +GLUCOPHAGE1000 MG PO; +IRON325 PO; +LINEZOLID600 MG PO; +TRIHEXYPHENIDYL2 M1 PO
[2020-03-12 01:30] LABS: ABSOLUTE NEUTROPHILS 2.9 thou/uL (1.4-8.2); BASOPHILS 0.6 % (0.0-2.0); EOSINOPHILS 4.3 % (0.0-3.0); HEMOGLOBIN 9.2 gm/dL (14.0-18.0); MCHC 31.7 g/dL (28.0-37.0); MCV 78.7 fL (80.0-100.0); MONOCYTES 11.5 % (1.0-8.0); PLATELET COUNT 174 thou/uL (150-400); POLYS 66.6 % (36.0-66.0); RBC 3.69 mil/uL (4.50-6.00); RDW 23.9 % (10.5-14.5); WBC 4.3 thou/uL (4.0-11.0)
[2020-03-12 01:37] LABS: CALCIUM 8.9 mg/dL (8.5-10.1); CREATININE 0.9 mg/dL (0.7-1.3); POTASSIUM 3.2 mmol/L (3.5-5.1)
[2020-03-12 01:43] LABS: ALBUMIN 3.7 g/dL (3.4-5.0); TOTAL BILIRUBIN 0.8 mg/dL (0.2-1.0); TOTAL PROTEIN 7.6 g/dL (6.4-8.2)
[2020-03-12 01:46] LABS: URINE BILIRUBIN NEGATIVE (Negative); URINE BLOOD NEGATIVE (Negative); URINE CLARITY CLEAR; URINE COLOR YELLOW; URINE GLUCOSE-RANDOM* NEGATIVE (Negative); URINE KETONES NEGATIVE (Negative); URINE LEUKOCYTES-REFLEX NEGATIVE (Negative); URINE NITRITE-REFLEX NEGATIVE (Negative); URINE PROTEIN (DIPSTICK) NEGATIVE (Negative); URINE SPECIFIC GRAVITY 1.025 (1.005-1.035); URINE UROBILINOGEN 0.2 E.U./dl (0.2-1.0)
[2020-03-12 01:54] LABS: ANISOCYTOSIS 3+; OVALOCYTES 1+
[2020-03-12 01:55] LABS: POLYCHROMASIA 1+
[2020-03-12 03:16] VITALS: BP 126/74
--- NOTE | 2020-03-12 08:29 | EKG ---
[facility] [place] [address] ELECTROCARDIOGRAM REPORT Name: FERDINAND WALSH Room #: DEP [facility]#: [id number] Admission: 03/12/20 Attend Phys: Discharge: 03/12/20 Date of : 36 Report #: [id number] THIS REPORT FOR: cc: [facility] - Clinic physician unknown [facility] - Clinic physician unknown Eleno Merida MD [facility] THIS REPORT FOR: //name// [facility] ED Test Date: 2020-03-12 Test Time: 01:29:24 Pat Name: FERDINAND WALSH Department: Room: Gender: Cuff Stitcher: [facility] : 1935 Requested By: Kenrick Bautista Order Number: [id number] MD: Eleno Merida Measurements Intervals Dixon Rate: 69 P: 65 MO: 56 QRS: 2 QRSD: 148 T: 4 QT: 448 QTc: 480 Interpretive Statements Sinus rhythm Right bundle branch block Compared to ECG 12/27/2019 16:57:59 No significant change was found Electronically Signed On 03-12-2020 8:29:47 CDT by Eleno Merida [email or web address] <ELECTRONICALLY SIGNED> By: Eleno Merida MD, [facility] 03/12/20 0829 0129 0129 Eleno Merida MD, [facility] /EPI
== END 2020-03-12 04:03 | disposition home or self-care (01) ==
LOC: ER 01:12
PROVIDERS: Emergency Medicine
DX: R53.1 Weakness (principal); I10 Essential (primary) hypertension; E11.9 Type 2 diabetes mellitus without complications; K21.9 Gastro-esophageal reflux disease without esophagitis; G89.29 Other chronic pain; M54.9 Dorsalgia, unspecified; Z79.899 Other long term (current) drug therapy; Z88.8 Allergy status to other drugs, medicaments and biological substances; W19.XXXA Unspecified fall, initial encounter; Y93.89 Activity, other specified; Y92.89 Other specified places as the place of occurrence of the external cause; Y99.8 Other external cause status